=== PATIENT | female | born 1930 | race Caucasian/White ===

== ENCOUNTER 2017-05-04 01:27 | Inpatient (IN) ==
[2017-05-04] MEDS ORDERED: 0.9 % Sodium Chloride 1,000 ML IVC ONE (01:48)
[2017-05-04] MEDS ORDERED: Ondansetron 4 MG/2 ML VIAL IVP ONE (01:48)
[2017-05-04 01:57] LABS: Bilirubin,Urine Negative (Negative); Blood,Urine Moderate (Negative); Clarity,Urine Cloudy (Clear); Color,Urine Yellow (Yellow); Glucose,Urine (UA) Normal (Normal); Ketones,Urine Negative (Negative); Leukocyte Esterase,Urine Small (Negative); Nitrite,Urine Negative (Negative); Protein,Urine 30 mg/dL (Neg-Trace); Specific Gravity,Urine 1.025 (1.010-1.025); Urobilinogen,Urine Normal (Normal)
[2017-05-04 01:58] LABS: Basophils % 0.4 %; Eosinophils # 0.1 K/mcL (0.0-0.6); Eosinophils % 1.3 %; Hemoglobin 8.4 g/dL (11.5-15.4); Immature Granulocytes % 0.3 % (0-4); Lymphocytes # 0.7 K/mcL (0.6-4.6); Lymphocytes % 8.5 %; Mean Corpuscular HGB Conc 32.3 g/dL (31.6-35.5); Mean Corpuscular Hemoglobin 31.8 pg (28.0-33.3); Mean Corpuscular Volume 98.5 fL (83.0-100.0); Mean Platelet Volume 11.3 fL (9.4-12.4); Monocytes # 0.8 K/mcL (0.0-1.3); Monocytes % 10.7 %; Neutrophils # 6.2 K/mcL (1.6-8.9); Platelet Count 189 K/mcL (140-400); Red Blood Count 2.64 M/mcL (3.82-4.97); Red Cell Distribution Width 13.8 % (11.5-14.5); Segmented Neutrophils % 78.8 %
[2017-05-04 02:00] LABS: Hyaline Casts,Urine None Seen per lpf (None-Few); Squamous Epithelial Cell,Urine Moderate per lpf (None-Few)
--- NOTE | 2017-05-04 02:00 | Emergency Department Note ---
Disposition Clinical Impression: Supratherapeutic INR, Ureteral mass, Colitis GI bleed Qualifiers: GI bleed type/associated pathology: unspecified gastrointestinal hemorrhage type Qualified Code(s): K92.2 - Gastrointestinal hemorrhage, unspecified Hemorrhoids Qualifiers: Hemorrhoid type: unspecified Qualified Code(s): K64.9 - Unspecified hemorrhoids Disposition: Admitted As Inpatient Condition: Fair Abdominal Pain HPI - General Chief Complaint: ED Abdominal Pain Stated Complaint: Abdominal Pain, Rectal Bleeding, Weakness Time Seen by Provider: 05/04/17 01:37 Source: patient, family Mode of arrival: private vehicle Limitations: age Nursing Notes Reviewed: Yes Vital Signs Reviewed: Yes - History of Present Illness HPI Narrative: 87-year-old female history of atrial fibrillation on Coumadin, CVA who presents to the ER with a chief complaint of weakness, rectal bleeding, abdominal pain. Patient states pain started about a week ago and has progressed. History is also obtained by . She reports that she has had some bleeding whenever she wipes for the last 2 days. She states she felt nauseous but did not have any vomiting. No diarrhea. Has not had a bowel movement in 2 days. Denies dysuria or hematuria. No chest pain but has felt slightly short of breath. No other complaints. Pt Subjective Complaint: abdominal pain Onset (ago): day(s) Consistency: constant Location: LLQ, RLQ, suprapubic Pain Severity: moderate Pain Scale: 8 Quality: aching Radiation: none Migration to: no migration Improves with: nothing Worsens with: nothing Associated symptoms: Reports: nausea, hematochezia. Denies: vomiting, diarrhea , fever, dysuria, hematuria Treatments prior to arrival: none - Related Data Home Medications Medication Instructions Recorded Confirmed Coumadin 11/24/15 11/24/15 Allergies Allergy/AdvReac Type Severity Reaction Status Date / Time No Known Allergies Allergy Verified 05/04/17 01:28 All systems ED: reviewed and negative except as stated. Constitutional: Denies: fever Cardiovascular: Denies: chest pain Respiratory: Reports: dyspnea. Denies: cough Gastrointestinal: Reports: abdominal pain, nausea, hematochezia. Denies: vomiting, diarrhea Genitourinary: Denies: dysuria, hematuria Neurological: Reports: weakness Abdominal Pain PMH - Past Medical History Medical history: Reports: atrial fibrillation, cancer, CHF, CVA Psychiatric history: Reports: no psych history - Social History Smoking status: Never smoker Alcohol use: Reports: none Drug use: Reports: none Physical Exam - General Limitations: no limitations General appearance: alert, in no apparent distress - Head Head exam: atraumatic, normocephalic, normal inspection - Eye Eye exam: Present: normal appearance, EOMI - ENT ENT exam: normal exam - Neck Neck exam: Present: normal inspection, full ROM - Chest Chest inspection: Present: normal inspection, symmetric chest wall rise - Respiratory Respiratory exam: Present: normal lung sounds bilaterally - Cardiovascular Cardiovascular exam: Present: regular rate, normal rhythm, normal heart sounds - Abdominal Exam Abdominal exam: Present: soft, tenderness (Mild tenderness to palpation in the lower abdomen without distention, guarding or rigidity.) - Rectal Exam [employer] Supervisor present during exam: Yes Rectal exam: Present: heme (+) stool, hemorrhoids - Extremities Exam Extremities exam: Present: normal inspection, full ROM - Expanded Upper Extremity Exam Shoulder exam: Present: normal inspection, full ROM Arm exam: Present: normal inspection, full ROM Elbow exam: Present: normal inspection, full ROM Forearm/Wrist exam: Present: normal inspection, full ROM Hand exam: Present: normal inspection, full ROM - Expanded Lower Extremity Exam Hip/Pelvis exam: Present: normal inspection, full ROM Upper leg exam: Present: normal inspection, full ROM Knee exam: Present: normal inspection, full ROM Lower leg exam: Present: normal inspection, full ROM Ankle exam: Present: normal inspection, full ROM Foot/toe exam: Present: normal inspection, full ROM Neurovascular/Tendon exam: Absent: motor deficit, sensory deficit - Neurological Exam Neurological exam: Present: alert, other (GCS 15. Nonfocal neurologic exam.) - Psychiatric Psychiatric exam: Present: normal affect, normal mood - Skin Skin exam: Present: warm, dry, intact Course Course Narrative: Patient seen and examined. Rectal exam demonstrates external hemorrhoids without thrombosis. We will obtain an EKG, chest x-ray as well as labs including CBC, coags, type and screen. We will also obtain a CT scan of the abdomen and pelvis for her lower abdominal pain as well as a urinalysis. - Reevaluation(s) Reevaluation #1: I discussed results of lab work with the patient. She has a 3 g drop in her hemoglobin in the last 2 months. Her INR is supratherapeutic at 7.5. We will give her a dose of oral vitamin K as well as type and cross her for 2 units of blood. She is normotensive at this time. She will be admitted for GI bleed. Reevaluation #2: I discussed the results of the CT findings with the patient and family. She voices no complaints at this time. I did discuss with her her wishes and she reports that she would want whatever needs to be done to be done. Vital Signs Temperature 97.5 F L 05/04/17 01:28 Pulse Rate 95 05/04/17 01:28 Respiratory Rate 18 05/04/17 01:28 Blood Pressure 148/69 05/04/17 01:28 O2 Sat by Pulse Oximetry 97 05/04/17 01:28 Temperature 97.5 F L 05/04/17 01:28 Pulse Rate 84 05/04/17 04:13 Respiratory Rate 16 05/04/17 04:13 Blood Pressure 126/70 05/04/17 04:13 O2 Sat by Pulse Oximetry 99 05/04/17 04:13 Oxygen Delivery Oxygen Delivery Room Air Abdominal Pain - MDM Narrative Medical decision making narrative: 87-year-old female presents to the ER to weakness, abdominal pain, rectal bleeding. She appears well here. Normotensive throughout her stay. Rectal exam demonstrates external hemorrhoids. She is Hemoccult positive. Hemoglobin has dropped 3 g from her most recent one roughly 6 weeks ago. She is on INR and is supratherapeutic at 7.5. CT scan demonstrates a questionable mass around her right ureter with questionable bleeding. She also demonstrates colitis of her distal colon. Her white count is normal. Patient given a liter of IV fluids as well as pain medication here. Admitted to the hospitalist service for further management. - Lab Data Lab results reviewed: Yes I reviewed the patient's lab results. Result diagrams: 05/04/17 01:45 05/04/17 01:45 Lab Results 05/04/17 05/04/17 05/04/17 Range/Units 01:40 01:45 01:45 WBC 7.8 (4.3-11.1) K/mcL RBC 2.64 L (3.82-4.97) M/mcL Hgb 8.4 L (11.5-15.4) g/dL Hct 26.0 L (35.3-44.9) % MCV 98.5 (83.0-100.0) fL MCH 31.8 (28.0-33.3) pg MCHC 32.3 (31.6-35.5) g/dL RDW 13.8 (11.5-14.5) % Plt Count 189 (140-400) K/mcL MPV 11.3 (9.4-12.4) fL Immature Gran % 0.3 (0-4) % Seg Neutrophils % 78.8 % Lymphocytes % 8.5 % Monocytes % 10.7 % Eosinophils % 1.3 % Basophils % 0.4 % Neutrophils # 6.2 (1.6-8.9) K/mcL Lymphocytes # 0.7 (0.6-4.6) K/mcL Monocytes # 0.8 (0.0-1.3) K/mcL Eosinophils # 0.1 (0.0-0.6) K/mcL Basophils # 0.0 (0.0-0.2) K/mcL PT 84.3 H* (9.4-12.1) Seconds INR 7.5 H* Sodium (136-145) mEq/L Potassium (3.5-4.5) mEq/L Chloride (98-109) mEq/L Carbon Dioxide (19-29) mEq/L BUN (7-20) mg/dL Creatinine (0.57-1.11) mg/dL Est GFR ( Amer) (> 60) Est GFR (Non-Af Amer) (> 60) BUN/Creatinine Ratio (6-26) Glucose (70-99) mg/dL Calculated Osmolality (280-300) Calcium (8.6-10.8) mg/dL Total Bilirubin (0.2-1.2) mg/dL Direct Bilirubin (0.0-0.5) mg/dL Indirect Bilirubin (0.0-1.2) mg/dL AST (5-34) Units/L ALT (0-55) Units/L Alkaline Phosphatase (38-126) Units/L Troponin I (0-0.03) ng/mL Serum Total Protein (6.0-8.3) g/dL Albumin (3.5-5.0) g/dL Globulin (2.4-3.5) g/dL Albumin/Globulin Ratio (1.1-2.2) Lipase (8-78) Units/L Ur Specimen Adequacy See below A Urine Color Yellow (Yellow) Urine Clarity Cloudy A (Clear) Urine pH 6.0 (5.0-8.0) pH Units Ur Specific [place] 1.025 (1.010-1.025) Urine Protein 30 H (Neg-Trace) mg/dL Urine Glucose (UA) Normal (Normal) mg/dL Urine Ketones Negative (Negative) mg/dL Urine Blood Moderate H (Negative) Urine Nitrite Negative (Negative) Urine Bilirubin Negative (Negative) Urine Urobilinogen Normal (Normal) mg/dL Ur Leukocyte Esterase Small H (Negative) Urine Microscopic RBC 5-15 H (0-3) per hpf Urine Microscopic WBC 3-5 H (0-3) per hpf Ur Squamous Epith Cells Moderate H (None-Few) per lpf Urine Bacteria Few (None-Few) per hpf Hyaline Casts None Seen (None-Few) per lpf Ur Culture Indicated? YES A (NO) Stool Occult Blood (Negative) Blood Type Antibody Screen Crossmatch 05/04/17 05/04/17 05/04/17 Range/Units 01:45 01:45 01:45 WBC (4.3-11.1) K/mcL RBC (3.82-4.97) M/mcL Hgb (11.5-15.4) g/dL Hct (35.3-44.9) % MCV (83.0-100.0) fL MCH (28.0-33.3) pg MCHC (31.6-35.5) g/dL RDW (11.5-14.5) % Plt Count (140-400) K/mcL MPV (9.4-12.4) fL Immature Gran % (0-4) % Seg Neutrophils % % Lymphocytes % % Monocytes % % Eosinophils % % Basophils % % Neutrophils # (1.6-8.9) K/mcL Lymphocytes # (0.6-4.6) K/mcL Monocytes # (0.0-1.3) K/mcL Eosinophils # (0.0-0.6) K/mcL Basophils # (0.0-0.2) K/mcL PT (9.4-12.1) Seconds INR Sodium 136 (136-145) mEq/L Potassium 4.8 H (3.5-4.5) mEq/L Chloride 100 (98-109) mEq/L Carbon Dioxide 28 (19-29) mEq/L BUN 29 H (7-20) mg/dL Creatinine 0.92 (0.57-1.11) mg/dL Est GFR ( Amer) > 60 (> 60) Est GFR (Non-Af Amer) 58 L (> 60) BUN/Creatinine Ratio 32 H (6-26) Glucose 125 H (70-99) mg/dL Calculated Osmolality 289 (280-300) Calcium 9.1 (8.6-10.8) mg/dL Total Bilirubin 1.4 H (0.2-1.2) mg/dL Direct Bilirubin 0.6 H (0.0-0.5) mg/dL Indirect Bilirubin 0.8 (0.0-1.2) mg/dL AST 22 (5-34) Units/L ALT 12 (0-55) Units/L Alkaline Phosphatase 82 (38-126) Units/L Troponin I 0.02 (0-0.03) ng/mL Serum Total Protein 7.1 (6.0-8.3) g/dL Albumin 3.4 L (3.5-5.0) g/dL Globulin 3.7 H (2.4-3.5) g/dL Albumin/Globulin Ratio 0.9 L (1.1-2.2) Lipase 28 (8-78) Units/L Ur Specimen Adequacy Urine Color (Yellow) Urine Clarity (Clear) Urine pH (5.0-8.0) pH Units Ur Specific [place] (1.010-1.025) Urine Protein (Neg-Trace) mg/dL Urine Glucose (UA) (Normal) mg/dL Urine Ketones (Negative) mg/dL Urine Blood (Negative) Urine Nitrite (Negative) Urine Bilirubin (Negative) Urine Urobilinogen (Normal) mg/dL Ur Leukocyte Esterase (Negative) Urine Microscopic RBC (0-3) per hpf Urine Microscopic WBC (0-3) per hpf Ur Squamous Epith Cells (None-Few) per lpf Urine Bacteria (None-Few) per hpf Hyaline Casts (None-Few) per lpf Ur Culture Indicated? (NO) Stool Occult Blood (Negative) Blood Type O POSITIVE Antibody Screen NEGATIVE Crossmatch See Detail 05/04/17 Range/Units 02:02 WBC (4.3-11.1) K/mcL RBC (3.82-4.97) M/mcL Hgb (11.5-15.4) g/dL Hct (35.3-44.9) % MCV (83.0-100.0) fL MCH (28.0-33.3) pg MCHC (31.6-35.5) g/dL RDW (11.5-14.5) % Plt Count (140-400) K/mcL MPV (9.4-12.4) fL Immature Gran % (0-4) % Seg Neutrophils % % Lymphocytes % % Monocytes % % Eosinophils % % Basophils % % Neutrophils # (1.6-8.9) K/mcL Lymphocytes # (0.6-4.6) K/mcL Monocytes # (0.0-1.3) K/mcL Eosinophils # (0.0-0.6) K/mcL Basophils # (0.0-0.2) K/mcL PT (9.4-12.1) Seconds INR Sodium (136-145) mEq/L Potassium (3.5-4.5) mEq/L Chloride (98-109) mEq/L Carbon Dioxide (19-29) mEq/L BUN (7-20) mg/dL Creatinine (0.57-1.11) mg/dL Est GFR ( Amer) (> 60) Est GFR (Non-Af Amer) (> 60) BUN/Creatinine Ratio (6-26) Glucose (70-99) mg/dL Calculated Osmolality (280-300) Calcium (8.6-10.8) mg/dL Total Bilirubin (0.2-1.2) mg/dL Direct Bilirubin (0.0-0.5) mg/dL Indirect Bilirubin (0.0-1.2) mg/dL AST (5-34) Units/L ALT (0-55) Units/L Alkaline Phosphatase (38-126) Units/L Troponin I (0-0.03) ng/mL Serum Total Protein (6.0-8.3) g/dL Albumin (3.5-5.0) g/dL Globulin (2.4-3.5) g/dL Albumin/Globulin Ratio (1.1-2.2) Lipase (8-78) Units/L Ur Specimen Adequacy Urine Color (Yellow) Urine Clarity (Clear) Urine pH (5.0-8.0) pH Units Ur Specific [place] (1.010-1.025) Urine Protein (Neg-Trace) mg/dL Urine Glucose (UA) (Normal) mg/dL Urine Ketones (Negative) mg/dL Urine Blood (Negative) Urine Nitrite (Negative) Urine Bilirubin (Negative) Urine Urobilinogen (Normal) mg/dL Ur Leukocyte Esterase (Negative) Urine Microscopic RBC (0-3) per hpf Urine Microscopic WBC (0-3) per hpf Ur Squamous Epith Cells (None-Few) per lpf Urine Bacteria (None-Few) per hpf Hyaline Casts (None-Few) per lpf Ur Culture Indicated? (NO) Stool Occult Blood Positive A (Negative) Blood Type Antibody Screen Crossmatch - Radiology Data Radiology results reviewed: Yes I reviewed the patient's radiology results. Abdomen/Pelvis CT 05/04/17 01:48 IMPRESSION: 1. Right-sided hydronephrosis with mixed attenuation mass occupying the right renal collecting system and extending along the course of the right ureter. It is unclear whether this is within the ureter or surrounds the ureter. The areas of increased attenuation may represent hemorrhage. The findings are likely related to a malignancy and urologic consultation is recommended. 2. Previous right hemicolectomy. Bowel wall thickening with pericolonic inflammatory changes involving the distal sigmoid colon and rectum. A focal colitis is not excluded. 3. Marked cardiomegaly. Small to moderate right pleural effusion. 4. Trace perihepatic ascites. Mild infiltration of the mesenteric fat and fat planes in the right pericolic gutter. D/ / Jose Lagos MD / Jose Lagos MD Interpreting Provider: Jose Lagos MD Chest X-Ray 05/04/17 01:49 IMPRESSION: 1. Stable moderate enlargement of the cardiac silhouette. 2. Emphysema. No superimposed acute pulmonary abnormality. D/ / Colton Louis MD / Colton Louis MD Interpreting Provider: Colton Louis MD - EKG Data EKG attestation: Yes I reviewed and interpreted this EKG. EKG results narrative: EKG demonstrates atrial fibrillation with a rate of 87 bpm. Normal axis. Normal intervals. Poor R-wave progression. Nonspecific ST-T wave changes in the lateral leads. T-wave inversions in lead 3 new from prior EKG. No gross ST elevations or depressions. Critical Care Time Critical Care Time: Yes Total Critical Care Time: 40 Attestation: Critical care performed: Time is exclusive of separately billable procedures. Time includes: direct patient care, patient reassessment, coordination of patient care, interpretation of data (laboratory data, radiology data, and respiratory data), review of patient's medical records, medical consultation and documentation of patient care. Procedures included in critical care time: Procedures excluded from critical care time: Jennifer.Aury - Stevan Situation: Demographics, MOA Background: Presenting Complaint, Relevant PMH, Meds, & Allergies Assessment: Vital Signs, Course and respsone to treatment, Exam Concerns, Patient/Family Expectation, Pertinant Lab Results, Outstanding Labs Recommendation: Barrier(s) to disposition, Recommendation based on pending studies, treatments, or consults Stevan Report Given to: Dr. Angel Calles Repor Time: 04:35 Attestation Statement - Attestation Attestation: I, Tyler Guevara MD, personally evaluated this patient and discussed their management with the resident physician. I reviewed the resident's note and agree with the documented findings, medical decision making, and plan of care. 87-year-old female presents to the emergency department with a complaint of some generalized abdominal pain which started about a week ago but is Worse over the past one or 2 days. She has been constipated and last bowel movement was 2 or 3 days ago and was only a small amount of small hard balls of stool. Patient states that she feels like her abdomen is going to explode however it does not seem swollen or bloated. She denies any fever. On examination patient is a well-developed thin elderly female in no acute distress. She is alert and oriented. There is no cyanosis or diaphoresis. Breath sounds are clear and equal bilaterally. Heart irregularly irregular. Abdomen soft with hypoactive bowel sounds. Mild diffuse tenderness. No guarding or rebound tenderness. No tympany or distention. Labs reviewed. INR 7.5. Hemoglobin 8.4 (last hemoglobin was 11.3 about [address] of the abdomen and pelvis showed right hydronephrosis with apparent hemorrhage into the renal pelvis and extending down along the ureter. Possible malignancy. The hospitalist, Dr. Ortiz, was consulted and accepted admission of this patient.
[2017-05-04 02:10] LABS: INR 7.5; Prothrombin Time 84.3 Seconds (9.4-12.1)
[2017-05-04 02:13] LABS: Alanine Aminotransferase 12 Units/L (0-55); Albumin 3.4 g/dL (3.5-5.0); Albumin/Globulin Ratio 0.9 (1.1-2.2); Alkaline Phosphatase 82 Units/L (38-126); Aspartate Amino Transferase 22 Units/L (5-34); BUN/Creatinine Ratio 32 (6-26); Bilirubin,Direct 0.6 mg/dL (0.0-0.5); Bilirubin,Indirect 0.8 mg/dL (0.0-1.2); Bilirubin,Total 1.4 mg/dL (0.2-1.2); Blood Urea Nitrogen 29 mg/dL (7-20); Calcium 9.1 mg/dL (8.6-10.8); Carbon Dioxide 28 mEq/L (19-29); Chloride 100 mEq/L (98-109); Globulin 3.7 g/dL (2.4-3.5); Glucose 125 mg/dL (70-99); Lipase 28 Units/L (8-78); Osmolality,Calculated 289 (280-300); Potassium 4.8 mEq/L (3.5-4.5); Sodium 136 mEq/L (136-145); Total Protein 7.1 g/dL (6.0-8.3); eGFR For African Americans > 60 (> 60); eGFR For Non-African Americans 58 (> 60)
[2017-05-04 02:15] LABS: Bacteria,Urine Few per hpf (None-Few)
[2017-05-04] MEDS ORDERED: *HR* Phytonadione 5 MG TABLET PO ONE (02:17)
[2017-05-04] MEDS ORDERED: *HR* Morphine 2 MG/ML SYRINGE IVP ONE (03:25)
[2017-05-04] MEDS ORDERED: 0.9 % Sodium Chloride 250 ML ONE ×2 (08:29→17:05)
[2017-05-04] MEDS ORDERED: Naloxone 0.4 MG/ML INJ IVP PRN (08:54)
[2017-05-04] MEDS ORDERED: Acetaminophen 325 MG TABLET PO PRN (08:54)
[2017-05-04] MEDS: *HR* Digoxin 0.125 MG TABLET PO SCH (11:40)
[2017-05-04] MEDS: Metoprolol XL (24 HR) Succ 50 MG TAB.ER.24H PO SCH ×2 (11:40→20:47)
[2017-05-04] MEDS: Furosemide 20 MG TABLET PO SCH ×2 (11:40→17:31)
[2017-05-04] MEDS: Isosorbide MONOnitrate (24 HR) 30 MG TAB.ER.24H PO SCH (11:40)
--- NOTE | 2017-05-04 12:06 | Internal Med History&Physical ---
Date of Encounter: 05/04/17 Time of Encounter: 09:00 Assessment and Plan (1) DVT prophylaxis Current visit: Yes Status: Acute Patient is on Coumadin. INR is supratherapeutic. Place patient on EPCD (2) CHF (congestive heart failure) Current visit: Yes Status: Chronic Appears euvolemic now. Continue home medications Qualifiers: Congestive heart failure type: systolic Congestive heart failure chronicity : chronic Qualified Code(s): I50.22 - Chronic systolic (congestive) heart failure (3) A-fib Current visit: Yes Status: Acute Heart rate is well controlled. On Coumadin but on hold now because of supratherapeutic INR and rectal bleeding. Qualifiers: Atrial fibrillation type: chronic Qualified Code(s): I48.2 - Chronic atrial fibrillation (4) Hypertension Current visit: Yes Status: Acute Continue home medications, BP is stable Qualifiers: Hypertension type: essential hypertension Qualified Code(s): I10 - Essential (primary) hypertension (5) GI bleed Current visit: Yes Status: Acute Patient complaining of fresh blood on toilet paper. Guaiac test positive in emergency room. History of colon cancer S/P surgery. Will consult surgery. At this point patient has stable vitals and H/H, continue close monitoring Qualifiers: GI bleed type/associated pathology: unspecified gastrointestinal hemorrhage type Qualified Code(s): K92.2 - Gastrointestinal hemorrhage, unspecified (6) Supratherapeutic INR Current visit: Yes Status: Acute Hold Coumadin, vitamin K was given in emergency room (7) Ureteral mass Current visit: Yes Status: Acute Will possibly also account for anemia. Will consult urology for further management (8) Colitis Current visit: Yes Status: Acute Patient to present to ER for abdominal pain. Feels like constipation but CT abdomen shows mild stool burden. CT suggests colitis. - We will place patient on clear liquid diet. - IV Cipro and Flagyl at this point. (9) Hemorrhoids Current visit: Yes Status: Acute Patient was found external hemorrhoid, which may also account for rectal bleeding. Qualifiers: Hemorrhoid type: unspecified Qualified Code(s): K64.9 - Unspecified hemorrhoids (10) Anemia Current visit: Yes Status: Acute Decreased hemoglobin from 11 to 8 within 2 months. MCV 98.5. Probably multiple factorial. We will place anemia workup. Qualifiers: Anemia type: unspecified type Qualified Code(s): D64.9 - Anemia, unspecified Internal Medicine - H&P: HPI Chief complaint: Abdominal pain Admitted From: Home Plans for Post Hospital Care: Home History of present illness: Ms. Adame is a 87 year old female presented to the emergency room for abdominal pain, patient has history of colon cancer S/P right hemicolectomy, A. fib on Coumadin, CHF, history of CVA with left-sided weakness. Patient said the pain started about 1 week ago, located on lower abdominal, no diarrhea. Patient feels like she has hard stool but cannot had a bowel movement. Patient denies fever, nausea, or vomiting. Patient has noticed fresh blood on the toilet paper. But denies large amount rectal bleeding. In emergency room, guaiac test positive. 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 Patient was admitted for further management. I have discussed CODE STATUS with this patient, patient is full code. Past Med Surg Social Fam HX - Past Medical History Medical history: atrial fibrillation, cancer, CHF, CVA, TIA Psychiatric history: no psych history - Past Surgical History Surgical History: colectomy - Social History Smoking Status: Former smoker Smokeless Tobacco Status: No Alcohol use: none Drug use: none - Family History Mother History Unknown: Yes Internal Medicine - H&P: Meds Alendronate Sodium 70 mg PO QWEEK 05/04/17 [History] Digoxin [Lanoxin] 0.125 mg PO DAILY 05/04/17 [History] Furosemide [Lasix] 20 mg PO BID 05/04/17 [History] Isosorbide MONOnitrate (24 HR) [Imdur] 30 mg PO DAILY 05/04/17 [History] Lisinopril [Zestril] 10 mg PO BID 05/04/17 [History] Metoprolol XL (24 HR) Succ [Toprol XL] 50 mg PO BID 05/04/17 [History] Simvastatin [Zocor] 20 mg PO DAILY 05/04/17 [History] Warfarin [Coumadin] 3 mg PO DAILY 05/04/17 [History] 3 Allergy/AdvReac Type Severity Reaction Status Date / Time No Known Allergies Allergy Verified 05/04/17 01:28 All Systems PM: A 10-system review of systems was performed and is negative for pertinent findings except as documented above in the HPI. - Constitutional Vitals: Temp Pulse Resp BP Pulse Ox 98.3 F 82 18 128/66 97 05/04/17 09:31 05/04/17 09:31 05/04/17 09:31 05/04/17 09:31 05/04/17 09:31 General appearance: Present: A&O X 3, no acute distress, answers questions appropriately - Head Head exam: Present: atraumatic, normocephalic - Eye Eye exam: Present: PERRL, conjuntiva pink, sclera anicteric Pupils: Present: PERRL - Neck Neck exam general surgery: Present: supple, trachea midline. Absent: lymphadenopathy - Respiratory Respiratory exam: Present: CTAB. Absent: accessory muscle use, rales, rhonchi, wheezes - Cardiovascular Cardiovascular exam: Present: RRR, +S1, +S2. Absent: diastolic murmur, gallop, rubs, systolic murmur - GI/Abdominal GI/Abdominal exam: Present: normal bowel sounds, soft, tenderness (Tenderness on lower abdominal area, Rt> Lt. no rebound), no peritoneal signs. Absent: distended - Extremities Exam Extremities exam: Present: warm, radial pulses palpable and symmetrical. Absent : calf tenderness, cyanotic, pedal edema - Neurological Exam Neurological exam: Present: CN II-XII intact, oriented X3, no focal deficits. Absent: pronater drift, facial droop, speech deficit - Skin Skin exam: Present: dry, intact Internal Med - H&P Results - Labs CBC & Chem 7: 05/04/17 01:45 05/04/17 01:45 - VTE Documentation of Mechanical Device: Intermittent pneumatic compression device
[2017-05-04] MEDS ORDERED: Furosemide 20 MG/2 ML VIAL IVP ONE (12:48)
--- NOTE | 2017-05-04 13:15 | General Surgery Consult Note ---
Date of Encounter: 05/04/17 Time of Encounter: 12:50 History of Present Illness Consult date: 05/04/17 Reason for consult: other (ANEMIA, HEMOCCULT POSITIVE STOOL, RECTAL BLEEDING) Requesting physician: Estefani Chambers History of present illness: 87 yo well known to me with prior history colon cancer, 1997. S/p right colectomy. Last seen in the office 2008. Colonoscopy completed at that time demonstrated normal colon with health intact ileocolic anastomosis. No evidence recurrent cancer at the time. The patient was 79 years old and due to advancing no further colonoscopies were planned or completed. The patient apparently suffered a stroke, 03/04/17. The patient has been "in and out" of rehab for treatment of the stroke. The patient describes passing copious rectal blood a few days ago but, due to confusion, the exact timeline is uncertain. The patient is unable to give a significant history and unfortunately her was not present during my encounter with the patient. Surgical consultation was placed for hemoglobin of 8.4 with hematocrit 26.0 ( notably diminished from hemoglobin of 11.3 and hematocrit 35.1 on 03/13/17). Stool is described as Hemoccult positive. CT of the abdomen and pelvis completed this morning was personally reviewed with [facility]. Radiology report describes abdominal pain and shortness of breath for 1 week; 2 day history of rectal bleeding as the reason for the CT abdomen and pelvis. Findings include: Small to moderate sized right pleural effusion; stable market cardiomegaly; unenhanced liver pancreas and adrenal glands unremarkable; multiple splenic granulomata; moderate right hydronephrosis with mixed attenuation mass extending from the renal hilum along the course of the ureter into the pelvis. It was not possible to determine whether the mass surrounded the ureter was within the ureter itself. This mass measures 4.7 x 3.4 cm. Bowel wall thickening involving the distal rectosigmoid with infiltration of the presacral soft tissues and paracolic soft tissues is also noted. It appears that the right-sided hydronephrosis and mixed attenuation mass right renal collecting system is associated with significant hemorrhage and is most likely the source of the patient's newly diagnosed anemia. PT/INR are markedly abnormal - currently 84.3 with an INR of 7.5. This degree of anticoagulation is contributing to the patient's hemorrhagic findings involving the right kidney and renal collecting system. Physical Examination: Frail, elderly female in no acute distress. Patient is afebrile, currently 97.9, pulse 66-82; respirations 16 and unlabored; one pressure 109/65; O2 on room air 96% Lungs: Diminished breath sounds right base; otherwise clear Abdomen: Soft, slightly protuberant but nontender. Midline incision well healed without fascial defects. No detected intra-abdominal masses, no rebound. Hypoactive bowel sounds Skin: Warm, no obvious jaundice Recommendations: It is unclear whether the patient wishes to consider any surgical intervention. I will wait to discuss things with the patient's as the patient is quite confused. Consider aggressive reversal of the anticoagulation. Surgical intervention will be determined per my discussions with the patient and her . Past Med Surg Social Fam HX - Past Medical History Medical history: atrial fibrillation, cancer, CHF, CVA, TIA Psychiatric history: no psych history - Past Surgical History Surgical History: colectomy - Social History Smoking Status: Former smoker Smokeless Tobacco Status: No Alcohol use: none Drug use: none - Family History Mother History Unknown: Yes Medications and Allergies Alendronate Sodium 70 mg PO QWEEK 05/04/17 [History] Digoxin [Lanoxin] 0.125 mg PO DAILY 05/04/17 [History] Furosemide [Lasix] 20 mg PO BID 05/04/17 [History] Isosorbide MONOnitrate (24 HR) [Imdur] 30 mg PO DAILY 05/04/17 [History] Lisinopril [Zestril] 10 mg PO BID 05/04/17 [History] Metoprolol XL (24 HR) Succ [Toprol XL] 50 mg PO BID 05/04/17 [History] Simvastatin [Zocor] 20 mg PO DAILY 05/04/17 [History] Warfarin [Coumadin] 3 mg PO DAILY 05/04/17 [History] 3 Allergy/AdvReac Type Severity Reaction Status Date / Time No Known Allergies Allergy Verified 05/04/17 01:28 Review of Systems All systems PM: A 10-system review of systems was performed and is negative for pertinent findings except as documented above in the HPI. General Surgery Exam Initial Vital Signs Temp Pulse Resp BP Pulse Ox 97.5 F L 95 18 148/69 97 05/04/17 01:28 05/04/17 01:28 05/04/17 01:28 05/04/17 01:28 05/04/17 01:28 Exam Initial Vital Signs Temp Pulse Resp BP Pulse Ox 97.5 F L 95 18 148/69 97 05/04/17 01:28 05/04/17 01:28 05/04/17 01:28 05/04/17 01:28 05/04/17 01:28 Results - Labs 05/04/17 01:45 05/04/17 01:45 Abnormal lab results RBC 2.64 M/mcL (3.82-4.97) L 05/04/17 01:45 Hgb 8.4 g/dL (11.5-15.4) L 05/04/17 01:45 Hct 26.0 % (35.3-44.9) L 05/04/17 01:45 PT 84.3 Seconds (9.4-12.1) H* 05/04/17 01:45 INR 7.5 H* 05/04/17 01:45 Potassium 4.8 mEq/L (3.5-4.5) H 05/04/17 01:45 BUN 29 mg/dL (7-20) H 05/04/17 01:45 Est GFR (Non-Af Amer) 58 (> 60) L 05/04/17 01:45 BUN/Creatinine Ratio 32 (6-26) H 05/04/17 01:45 Glucose 125 mg/dL (70-99) H 05/04/17 01:45 POC Glucose 109 (58-89) H 05/04/17 07:00 Total Bilirubin 1.4 mg/dL (0.2-1.2) H 05/04/17 01:45 Direct Bilirubin 0.6 mg/dL (0.0-0.5) H 05/04/17 01:45 Albumin 3.4 g/dL (3.5-5.0) L 05/04/17 01:45 Globulin 3.7 g/dL (2.4-3.5) H 05/04/17 01:45 Albumin/Globulin Ratio 0.9 (1.1-2.2) L 05/04/17 01:45 Ur Specimen Adequacy See below A 05/04/17 01:40 Urine Clarity Cloudy (Clear) A 05/04/17 01:40 Urine Protein 30 mg/dL (Neg-Trace) H 05/04/17 01:40 Urine Blood Moderate (Negative) H 05/04/17 01:40 Ur Leukocyte Esterase Small (Negative) H 05/04/17 01:40 Urine Microscopic RBC 5-15 per hpf (0-3) H 05/04/17 01:40 Urine Microscopic WBC 3-5 per hpf (0-3) H 05/04/17 01:40 Ur Squamous Epith Cells Moderate per lpf (None-Few) H 05/04/17 01:40 Ur Culture Indicated? YES (NO) A 05/04/17 01:40 Stool Occult Blood Positive (Negative) A 05/04/17 02:02 All other labs normal. Consult Discharge Plan - Plan Referrals: Mane Wright DO [Primary Care Provider] -
[2017-05-04] MEDS ORDERED: MetroNIDAZOLE 500 MG/100 ML 500 MG/100 ML BAG IVPB SCH ×2 (16:00→21:00)
--- NOTE | 2017-05-04 19:09 | Electrocardiograph Report ---
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
--- NOTE | 2017-05-04 20:03 | Urology - Consult Note ---
Date of Encounter: 05/04/17 Time of Encounter: 20:00 - Assessment and Plan (1) Ureteral mass Current Visit: Yes Status: Acute Assessment and plan: 87-year-old woman with a concern for a right ureteral mass versus external compression to the ureter. I will discuss further with Dr. Talavera regarding her colon cancer history. Further urologic workup would include a urine cytology as well as a right ureteroscopy, possible biopsy, and stent placement. I will obtain a cytology today. I will discuss further with Dr. Talavera. I answered all of her questions. I will continue to follow along. Urology CN:HPI Consult date: 05/04/17 Reason for consult Urology: Other (right urothelial mass vs extrinsic mass compressing ureter) History of present illness: 87-year-old woman with a history of colon cancer was admitted to the hospital for abdominal pain. Workup a CT scan was obtained which showed a large mass around the cord within the right ureter. This seemed to extend into the right kidney. She has been admitted for further care. She had an elevated INR secondary to her warfarin. She is getting plasma to bring down the INR. She denies any right flank pain or difficulty with voiding. She denies any hematuria. Past Med Surg Social Fam HX - Past Medical History Medical history: atrial fibrillation, cancer, CHF, CVA, TIA Psychiatric history: no psych history - Past Surgical History Surgical History: colectomy - Social History Smoking Status: Former smoker Smokeless Tobacco Status: No Alcohol use: none Drug use: none - Family History Mother History Unknown: Yes Medications and Allergies Alendronate Sodium 70 mg PO QWEEK 05/04/17 [History] Digoxin [Lanoxin] 0.125 mg PO DAILY 05/04/17 [History] Furosemide [Lasix] 20 mg PO BID 05/04/17 [History] Isosorbide MONOnitrate (24 HR) [Imdur] 30 mg PO DAILY 05/04/17 [History] Lisinopril [Zestril] 10 mg PO BID 05/04/17 [History] Metoprolol XL (24 HR) Succ [Toprol XL] 50 mg PO BID 05/04/17 [History] Simvastatin [Zocor] 20 mg PO DAILY 05/04/17 [History] Warfarin [Coumadin] 3 mg PO DAILY 05/04/17 [History] 3 Allergy/AdvReac Type Severity Reaction Status Date / Time No Known Allergies Allergy Verified 05/04/17 01:28 Review of Systems - Constitutional no chills, no fever(s) - EENT Nose, mouth and throat: no dizziness - Cardiovascular no chest pain - Respiratory no dyspnea - Gastrointestinal no nausea, no vomiting - Genitourinary Genitourinary: no flank pain, no hematuria - Musculoskeletal no back pain - Integumentary no erythema, no rash - Neurological no weakness - Psychiatric no suicidal ideation - Hematologic/Lymphatic no easy bleeding - Allergic/Immunologic no wheezing Exam Initial Vital Signs Temp Pulse Resp BP Pulse Ox 97.5 F L 95 18 148/69 97 05/04/17 01:28 05/04/17 01:28 05/04/17 01:28 05/04/17 01:28 05/04/17 01:28 - General physical appearance Present: well developed, well nourished, no distress - Eyes Absent: icteric - ENT Present: normal mucosa - Neck Present: trachea midline - Respiratory Present: normal respiratory effort - Cardiovascular Cardiovascular exam IM: RRR - Abdomen Abdomen: Present: soft Urology Results - Labs 05/04/17 01:45 05/04/17 01:45 Abnormal lab results RBC 2.64 M/mcL (3.82-4.97) L 05/04/17 01:45 Hgb 8.4 g/dL (11.5-15.4) L 05/04/17 01:45 Hct 26.0 % (35.3-44.9) L 05/04/17 01:45 PT 84.3 Seconds (9.4-12.1) H* 05/04/17 01:45 INR 7.5 H* 05/04/17 01:45 Potassium 4.8 mEq/L (3.5-4.5) H 05/04/17 01:45 BUN 29 mg/dL (7-20) H 05/04/17 01:45 Est GFR (Non-Af Amer) 58 (> 60) L 05/04/17 01:45 BUN/Creatinine Ratio 32 (6-26) H 05/04/17 01:45 Glucose 125 mg/dL (70-99) H 05/04/17 01:45 POC Glucose 109 (58-89) H 05/04/17 07:00 Total Bilirubin 1.4 mg/dL (0.2-1.2) H 05/04/17 01:45 Direct Bilirubin 0.6 mg/dL (0.0-0.5) H 05/04/17 01:45 Albumin 3.4 g/dL (3.5-5.0) L 05/04/17 01:45 Globulin 3.7 g/dL (2.4-3.5) H 05/04/17 01:45 Albumin/Globulin Ratio 0.9 (1.1-2.2) L 05/04/17 01:45 Ur Specimen Adequacy See below A 05/04/17 01:40 Urine Clarity Cloudy (Clear) A 05/04/17 01:40 Urine Protein 30 mg/dL (Neg-Trace) H 05/04/17 01:40 Urine Blood Moderate (Negative) H 05/04/17 01:40 Ur Leukocyte Esterase Small (Negative) H 05/04/17 01:40 Urine Microscopic RBC 5-15 per hpf (0-3) H 05/04/17 01:40 Urine Microscopic WBC 3-5 per hpf (0-3) H 05/04/17 01:40 Ur Squamous Epith Cells Moderate per lpf (None-Few) H 05/04/17 01:40 Ur Culture Indicated? YES (NO) A 05/04/17 01:40 Stool Occult Blood Positive (Negative) A 05/04/17 02:02 All other labs normal. - Imaging CT scan - abdomen: report reviewed, image reviewed CT scan - pelvis: report reviewed, image reviewed Consult Discharge Plan - Plan Referrals: Mane Wright DO [Primary Care Provider] -
[2017-05-04] MEDS ORDERED: 0.9 % Sodium Chloride 500 ML ONE (20:16)
[2017-05-04 20:17] LABS: INR 3.9
[2017-05-05] MEDS: MetroNIDAZOLE 500 MG/100 ML 500 MG/100 ML BAG IVPB SCH ×3 (00:41→18:25)
[2017-05-05 06:44] LABS: INR 3.2; Prothrombin Time 35.7 Seconds (9.4-12.1)
[2017-05-05 06:48] LABS: Basophils % 0.6 %; Eosinophils # 0.1 K/mcL (0.0-0.6); Eosinophils % 2.8 %; Hematocrit 26.6 % (35.3-44.9); Hemoglobin 8.6 g/dL (11.5-15.4); Immature Granulocytes % 2.1 % (0-4); Lymphocytes # 0.3 K/mcL (0.6-4.6); Lymphocytes % 6.8 %; Mean Corpuscular HGB Conc 32.3 g/dL (31.6-35.5); Mean Corpuscular Hemoglobin 30.8 pg (28.0-33.3); Mean Corpuscular Volume 95.3 fL (83.0-100.0); Mean Platelet Volume 11.2 fL (9.4-12.4); Monocytes # 0.8 K/mcL (0.0-1.3); Monocytes % 16.1 %; Neutrophils # 3.4 K/mcL (1.6-8.9); Platelet Count 158 K/mcL (140-400); Red Blood Count 2.79 M/mcL (3.82-4.97); Red Cell Distribution Width 14.6 % (11.5-14.5); Segmented Neutrophils % 71.6 %
[2017-05-05 06:54] LABS: BUN/Creatinine Ratio 23 (6-26); Calcium 8.8 mg/dL (8.6-10.8); Carbon Dioxide 35 mEq/L (19-29); Chloride 100 mEq/L (98-109); Glucose 92 mg/dL (70-99); Osmolality,Calculated 290 (280-300); eGFR For African Americans > 60 (> 60); eGFR For Non-African Americans > 60 (> 60)
[2017-05-05 07:05] LABS: Blood Urea Nitrogen 18 mg/dL (7-20); Sodium 139 mEq/L (136-145)
[2017-05-05] MEDS: Metoprolol XL (24 HR) Succ 50 MG TAB.ER.24H PO SCH ×2 (08:56→22:16)
[2017-05-05] MEDS: Furosemide 20 MG TABLET PO SCH ×2 (08:56→18:25)
[2017-05-05] MEDS: *HR* Digoxin 0.125 MG TABLET PO SCH (08:56)
[2017-05-05] MEDS: Isosorbide MONOnitrate (24 HR) 30 MG TAB.ER.24H PO SCH (08:56)
--- NOTE | 2017-05-05 09:36 | General Surgery Progress Note ---
Date of Encounter: 05/05/17 Time of Encounter: 09:20 Subjective Patient reports: no new complaints, other (Patient severely disoriented) Narrative: General Surgery - Hospital Day #2 at bedside. Patient is severely disoriented and does not recall the events of the previous day nor does she remember GI bleeding. Patient has remained afebrile, currently 98.3, pulse 8192; respirations 18 and nonlabored; blood pressure 159/72. SPO2 on room air 93-96% Abdomen: Soft, nontender. No rebound. Active bowel sounds. Laboratories: White count 4.7, hemoglobin stable at 8.6 and 26.6 (status post transfusion one unit packed red blood cells) platelet count 158,000. PT 35.7, INR 3.2. Impression: Confused, 87-year-old female, referred to surgical services as well as urology for further evaluation and treatment of GI bleeding as well as Jyoti perinephric hemorrhage. Patient remains supra-anticoagulated which is contributing to the bleeding. The patient is extremely frail and a poor candidate for any intervention. These discussions have been held with the patient's . The level of anticoagulation is still unacceptably high - continued reversal recommended. Objective Vital Signs - Last 8 Hours Temp Pulse Resp BP Pulse Ox 05/05/17 07:14 98.3 F 92 18 159/72 93 05/05/17 04:15 98.2 F 81 14 128/67 96 Intake and Output 05/04/17 05/05/17 05/05/17 23:59 07:59 15:59 Intake Total 745 / 745 200 / 200 Output Total 650 / 650 0 / 0 Balance 95 / 95 200 / 200 Intake: IV Fluids 200 / 200 Cipro Premix 200 MG/100 ML 200 100 / 100 mg In 100 ml @ 100 mls/hr IVPB Q12H [facility] Rx#:[id number] Flagyl Premix 500 MG/100 ML 500 100 / 100 mg In 100 ml @ 100 mls/hr IVPB Q8H [facility] Rx#:[id number] Oral 120 / 120 0 / 0 Blood Product 625 / 625 Plasma Unit [id number] 375 / 375 Plasma Unit [id number] 250 / 250 Output: Urine 650 / 650 0 / 0 Other: # Voids 1 Weight 50.167 kg Patient Weight 05/05/17 23:59 Weight 50.167 kg - Labs 10/14/17 06:25 05/05/17 06:25 Diabetes panel 05/05/17 Range/Units 06:25 Sodium 139 (136-145) mEq/L Potassium 4.0 (3.5-4.5) mEq/L Chloride 100 (98-109) mEq/L Carbon Dioxide 35 H (19-29) mEq/L BUN 18 D (7-20) mg/dL Creatinine 0.79 (0.57-1.11) mg/dL Glucose 92 (70-99) mg/dL Calcium 8.8 (8.6-10.8) mg/dL Calcium panel 05/05/17 Range/Units 06:25 Calcium 8.8 (8.6-10.8) mg/dL Pituitary panel 05/05/17 Range/Units 06:25 Sodium 139 (136-145) mEq/L Potassium 4.0 (3.5-4.5) mEq/L Chloride 100 (98-109) mEq/L Carbon Dioxide 35 H (19-29) mEq/L BUN 18 D (7-20) mg/dL Creatinine 0.79 (0.57-1.11) mg/dL Glucose 92 (70-99) mg/dL Calcium 8.8 (8.6-10.8) mg/dL Adrenal panel 05/05/17 Range/Units 06:25 Sodium 139 (136-145) mEq/L Potassium 4.0 (3.5-4.5) mEq/L Chloride 100 (98-109) mEq/L Carbon Dioxide 35 H (19-29) mEq/L BUN 18 D (7-20) mg/dL Creatinine 0.79 (0.57-1.11) mg/dL Glucose 92 (70-99) mg/dL Calcium 8.8 (8.6-10.8) mg/dL - VTE Documentation of Mechanical Device: Venous foot pump, device Consult Discharge Plan - Plan Referrals: Mane Wright DO [Primary Care Provider] -
[2017-05-05] MEDS ORDERED: 0.9 % Sodium Chloride 250 ML ONE ×2 (12:00→15:52)
--- NOTE | 2017-05-05 12:39 | Urology Progress Note ---
Date of Encounter: 05/05/17 Time of Encounter: 12:37 - Assessment and Plan (1) Ureteral mass Current Visit: Yes Status: Acute Assessment and plan: There is concern for a ureteral mass or a urothelial bleed. Given her elevated INR, it seems likely that she had a spontaneous bleed. I will follow up on cytology once obtained. We may consider repeat imaging in the future versus ureteroscopy. Given her age and performance status, observation may be more reasonable. Progress Note Narrative: 87-year-old woman with a right renal bleed versus possible retroperitoneal mass. She is stable today. I spoke with Dr. Talavera today. She recommends close observation. She is stable today. Objective Initial Vital Signs Temp Pulse Resp BP Pulse Ox 97.5 F L 95 18 148/69 97 05/04/17 01:28 05/04/17 01:28 05/04/17 01:28 05/04/17 01:28 05/04/17 01:28 - General physical appearance Present: well developed, well nourished, no distress - Respiratory Present: normal respiratory effort - Abdomen Present: soft - Labs 05/05/17 06:25 05/05/17 06:25 Diabetes panel 05/05/17 Range/Units 06:25 Sodium 139 (136-145) mEq/L Potassium 4.0 (3.5-4.5) mEq/L Chloride 100 (98-109) mEq/L Carbon Dioxide 35 H (19-29) mEq/L BUN 18 D (7-20) mg/dL Creatinine 0.79 (0.57-1.11) mg/dL Glucose 92 (70-99) mg/dL Calcium 8.8 (8.6-10.8) mg/dL Calcium panel 05/05/17 Range/Units 06:25 Calcium 8.8 (8.6-10.8) mg/dL Pituitary panel 05/05/17 Range/Units 06:25 Sodium 139 (136-145) mEq/L Potassium 4.0 (3.5-4.5) mEq/L Chloride 100 (98-109) mEq/L Carbon Dioxide 35 H (19-29) mEq/L BUN 18 D (7-20) mg/dL Creatinine 0.79 (0.57-1.11) mg/dL Glucose 92 (70-99) mg/dL Calcium 8.8 (8.6-10.8) mg/dL Adrenal panel 05/05/17 Range/Units 06:25 Sodium 139 (136-145) mEq/L Potassium 4.0 (3.5-4.5) mEq/L Chloride 100 (98-109) mEq/L Carbon Dioxide 35 H (19-29) mEq/L BUN 18 D (7-20) mg/dL Creatinine 0.79 (0.57-1.11) mg/dL Glucose 92 (70-99) mg/dL Calcium 8.8 (8.6-10.8) mg/dL - VTE Documentation of Mechanical Device: Venous foot pump, device Consult Discharge Plan - Plan Referrals: Mane Wright DO [Primary Care Provider] -
--- NOTE | 2017-05-05 12:48 | Internal Med Progress Note ---
Date of Encounter: 05/05/17 Time of Encounter: 12:44 - Assessment and plan (1) GI bleed Current Visit: Yes Status: Acute Assessment and plan: No acute bleeding reported since hospitalization H&H low but acceptable Surgery (Dr. Talavera) on board and consultation appreciated will continue to closely monitor and transfuse as needed IV PPI clear liquid diet Qualifiers: GI bleed type/associated pathology: unspecified gastrointestinal hemorrhage type Qualified Code(s): K92.2 - Gastrointestinal hemorrhage, unspecified (2) Anemia Current Visit: Yes Status: Acute Assessment and plan: secondary to GI bleed H&H low but acceptable will continue to monitor transfuse as needed will obtain iron studies Qualifiers: Anemia type: unspecified type Qualified Code(s): D64.9 - Anemia, unspecified (3) Supratherapeutic INR Current Visit: Yes Status: Acute Assessment and plan: secondary to Coumadin holding anticoagulation at this time pt receiving 2 units FFP at this time will closely monitor INR s/p receiving Vitamin K upon arrival to the ER (4) Ureteral mass Current Visit: Yes Status: Acute Assessment and plan: urology on board and consultation appreciated awaiting normalization of INR prior to any surgical intervention (5) Colitis Current Visit: Yes Status: Acute Assessment and plan: CT abd pelvis consistent with Colitis continue clear liquid diet continue IV cipro and flagyl reports of resolution of abd pain at this time (6) DVT prophylaxis Current Visit: Yes Status: Acute Assessment and plan: SCD (7) CHF (congestive heart failure) Current Visit: Yes Status: Chronic Assessment and plan: no clinical signs of CHF exacerbation present continue home meds Qualifiers: Congestive heart failure type: systolic Congestive heart failure chronicity : chronic Qualified Code(s): I50.22 - Chronic systolic (congestive) heart failure (8) A-fib Current Visit: Yes Status: Chronic Assessment and plan: Rate controlled with Metoprolol, will continue holding anticoagulation given current GI bleed Qualifiers: Atrial fibrillation type: chronic Qualified Code(s): I48.2 - Chronic atrial fibrillation (9) Hypertension Current Visit: Yes Status: Chronic Assessment and plan: BP within acceptable range continue home medications Qualifiers: Hypertension type: essential hypertension Qualified Code(s): I10 - Essential (primary) hypertension - Subjective Interval history: Patient seen and examined at bedside. Resting in bed and eating lunch. Currently AAO x 3 however does not recall the events from previous day. Denies any abd discomfort or any pain at this time. Continues to have supratherapeutic INR for which she is currently receiving FFP No recurrent bleeding episodes reported since hospitalization No overnight events reported. - Constitutional Vitals: Temp Pulse Resp BP Pulse Ox 98.5 F 77 12 118/65 91 05/05/17 12:17 05/05/17 12:17 05/05/17 12:17 05/05/17 12:17 05/05/17 12:17 General appearance: Present: A&O X 3, no acute distress, underweight, answers questions appropriately - Head Head exam: Present: atraumatic, normocephalic - Eye Eye exam: Present: conjuntiva pink, sclera anicteric - Respiratory Respiratory exam: Present: CTAB. Absent: respiratory distress, wheezes - Cardiovascular Cardiovascular exam: Present: RRR, +S1, +S2. Absent: diastolic murmur, gallop, rubs, systolic murmur - GI/Abdominal GI/Abdominal exam: Present: normal bowel sounds, soft, no peritoneal signs. Absent: distended, tenderness - Extremities Exam Extremities exam: Present: warm, radial pulses palpable and symmetrical. Absent : calf tenderness, cyanotic, pedal edema - Neurological Exam Neurological exam: Present: alert, oriented X3 - Psychiatric Psychiatric exam: Present: normal affect, normal mood Internal Medicine: Result - Labs CBC & Chem 7: 05/05/17 06:25 05/05/17 06:25 Labs: Short CBC 05/05/17 Range/Units 06:25 WBC 4.7 (4.3-11.1) K/mcL Hgb 8.6 L (11.5-15.4) g/dL Hct 26.6 L (35.3-44.9) % Plt Count 158 (140-400) K/mcL Neutrophils # 3.4 (1.6-8.9) K/mcL BMP 05/05/17 06:25 Sodium 139 Potassium 4.0 Chloride 100 Carbon Dioxide 35 H BUN 18 D Creatinine 0.79 Glucose 92 Calcium 8.8 - ABG Interpretation ABG results: PT/INR, D-dimer PT 35.7 Seconds (9.4-12.1) H 05/05/17 06:25 - VTE Documentation of Mechanical Device: Venous foot pump, device Consult Discharge Plan - Plan Referrals: Mane Wright DO [Primary Care Provider] -
[2017-05-05] MEDS: Pantoprazole 40 MG VIAL IVP SCH ×2 (13:42→18:12)
[2017-05-06] MEDS: MetroNIDAZOLE 500 MG/100 ML 500 MG/100 ML BAG IVPB SCH ×3 (06:11→17:40)
[2017-05-06] MEDS: Pantoprazole 40 MG VIAL IVP SCH ×2 (06:12→17:40)
[2017-05-06 07:21] LABS: INR 2.9; Prothrombin Time 31.4 Seconds (9.4-12.1)
[2017-05-06 07:23] LABS: Basophils % 0.5 %; Eosinophils # 0.3 K/mcL (0.0-0.6); Eosinophils % 5.2 %; Hematocrit 25.9 % (35.3-44.9); Hemoglobin 8.4 g/dL (11.5-15.4); Immature Granulocytes % 0.2 % (0-4); Lymphocytes # 0.5 K/mcL (0.6-4.6); Mean Corpuscular HGB Conc 32.4 g/dL (31.6-35.5); Mean Corpuscular Hemoglobin 30.9 pg (28.0-33.3); Mean Corpuscular Volume 95.2 fL (83.0-100.0); Mean Platelet Volume 11.4 fL (9.4-12.4); Monocytes # 0.7 K/mcL (0.0-1.3); Monocytes % 11.3 %; Neutrophils # 4.3 K/mcL (1.6-8.9); Platelet Count 163 K/mcL (140-400); Red Blood Count 2.72 M/mcL (3.82-4.97); Red Cell Distribution Width 14.2 % (11.5-14.5); Segmented Neutrophils % 73.8 %
[2017-05-06 07:48] LABS: BUN/Creatinine Ratio 19 (6-26); Blood Urea Nitrogen 15 mg/dL (7-20); Carbon Dioxide 31 mEq/L (19-29); Chloride 99 mEq/L (98-109); Glucose 97 mg/dL (70-99); Magnesium 1.7 mg/dL (1.6-2.6); Osmolality,Calculated 287 (280-300); Phosphorous 2.7 mg/dL (2.3-4.7); Potassium 3.9 mEq/L (3.5-4.5); Sodium 138 mEq/L (136-145); eGFR For African Americans > 60 (> 60); eGFR For Non-African Americans > 60 (> 60)
[2017-05-06] MEDS ORDERED: *HR* Phytonadione 10 MG/ML AMPUL SQ ONE (08:05)
[2017-05-06] MEDS: Furosemide 20 MG TABLET PO SCH ×2 (09:55→17:40)
[2017-05-06] MEDS: *HR* Digoxin 0.125 MG TABLET PO SCH (09:55)
[2017-05-06] MEDS: Metoprolol XL (24 HR) Succ 50 MG TAB.ER.24H PO SCH ×2 (09:55→20:09)
[2017-05-06] MEDS: Isosorbide MONOnitrate (24 HR) 30 MG TAB.ER.24H PO SCH (09:55)
[2017-05-06 10:41] LABS: % Iron Saturation 10 % (15-50); Iron 26 mcg/dL (50-170); Transferrin 194 mg/dL (180-382)
[2017-05-06 10:59] LABS: Ferritin 194 ng/ml (5-204)
[2017-05-06 11:14] LABS: Folate 17.5 ng/mL (7.0-31.4)
--- NOTE | 2017-05-06 12:12 | Urology Progress Note ---
Date of Encounter: 05/06/17 Time of Encounter: 12:10 - Assessment and Plan (1) Ureteral mass Current Visit: Yes Status: Acute Assessment and plan: 87-year-old woman with an elevated INR, possible urothelial bleed versus ureteral mass. She is currently stable today. A urine cytology is pending. I recommend repeat imaging as an outpatient in 2-4 weeks to see if the bleeding has resolved. We can consider operative ureteroscopy at that time. There are no acute urologic issues currently. She has no hematuria. Urology will sign off at this point. We will see her back in 2 weeks in the office to arrange for follow- up imaging. Please call with questions. Progress Note Narrative: Patient sleeping this morning. No events overnight. Objective Initial Vital Signs Temp Pulse Resp BP Pulse Ox 97.5 F L 95 18 148/69 97 05/04/17 01:28 05/04/17 01:28 05/04/17 01:28 05/04/17 01:28 05/04/17 01:28 - General physical appearance Present: other (Sleeping.) - Labs 05/06/17 06:57 05/06/17 06:57 Diabetes panel 05/06/17 Range/Units 06:57 Sodium 138 (136-145) mEq/L Potassium 3.9 (3.5-4.5) mEq/L Chloride 99 (98-109) mEq/L Carbon Dioxide 31 H (19-29) mEq/L BUN 15 (7-20) mg/dL Creatinine 0.79 (0.57-1.11) mg/dL Glucose 97 (70-99) mg/dL Calcium 9.0 (8.6-10.8) mg/dL Calcium panel 05/06/17 Range/Units 06:57 Calcium 9.0 (8.6-10.8) mg/dL Phosphorus 2.7 (2.3-4.7) mg/dL Pituitary panel 05/06/17 Range/Units 06:57 Sodium 138 (136-145) mEq/L Potassium 3.9 (3.5-4.5) mEq/L Chloride 99 (98-109) mEq/L Carbon Dioxide 31 H (19-29) mEq/L BUN 15 (7-20) mg/dL Creatinine 0.79 (0.57-1.11) mg/dL Glucose 97 (70-99) mg/dL Calcium 9.0 (8.6-10.8) mg/dL Adrenal panel 05/06/17 Range/Units 06:57 Sodium 138 (136-145) mEq/L Potassium 3.9 (3.5-4.5) mEq/L Chloride 99 (98-109) mEq/L Carbon Dioxide 31 H (19-29) mEq/L BUN 15 (7-20) mg/dL Creatinine 0.79 (0.57-1.11) mg/dL Glucose 97 (70-99) mg/dL Calcium 9.0 (8.6-10.8) mg/dL - VTE Documentation of Mechanical Device: Intermittent pneumatic compression device Consult Discharge Plan - Plan Referrals: Mane Wright DO [Primary Care Provider] - Jese Severino MD [Partnered Physician] - (2 weeks.)
--- NOTE | 2017-05-06 14:31 | Internal Med Progress Note ---
Date of Encounter: 05/06/17 Time of Encounter: 14:30 - Assessment and plan (1) GI bleed Current Visit: Yes Status: Acute Assessment and plan: No acute bleeding reported since hospitalization H&H low but acceptable Surgery (Dr. Talavera) on board and consultation appreciated will continue to closely monitor and transfuse as needed IV PPI clear liquid diet Qualifiers: GI bleed type/associated pathology: unspecified gastrointestinal hemorrhage type Qualified Code(s): K92.2 - Gastrointestinal hemorrhage, unspecified (2) Anemia Current Visit: Yes Status: Acute Assessment and plan: secondary to GI bleed H&H low but acceptable will continue to monitor transfuse as needed Qualifiers: Anemia type: unspecified type Qualified Code(s): D64.9 - Anemia, unspecified (3) Supratherapeutic INR Current Visit: Yes Status: Acute Assessment and plan: secondary to Coumadin holding anticoagulation at this time s/p FFP transfusion INR improved from previous day will give one time dose of Vitamin K 10mg SQ will closely monitor INR (4) Ureteral mass Current Visit: Yes Status: Acute Assessment and plan: urology on board and consultation appreciated no surgical intervention recommended at this time outpatient follow up recommended (5) Colitis Current Visit: Yes Status: Acute Assessment and plan: CT abd pelvis consistent with Colitis continue clear liquid diet continue IV cipro and flagyl reports of resolution of abd pain at this time (6) DVT prophylaxis Current Visit: Yes Status: Acute Assessment and plan: SCD (7) CHF (congestive heart failure) Current Visit: Yes Status: Chronic Assessment and plan: no clinical signs of CHF exacerbation present continue home meds Qualifiers: Congestive heart failure type: systolic Congestive heart failure chronicity : chronic Qualified Code(s): I50.22 - Chronic systolic (congestive) heart failure (8) A-fib Current Visit: Yes Status: Chronic Assessment and plan: Rate controlled with Metoprolol, will continue holding anticoagulation given current GI bleed Qualifiers: Atrial fibrillation type: chronic Qualified Code(s): I48.2 - Chronic atrial fibrillation (9) Hypertension Current Visit: Yes Status: Chronic Assessment and plan: BP within acceptable range continue home medications Qualifiers: Hypertension type: essential hypertension Qualified Code(s): I10 - Essential (primary) hypertension (10) Goals of care, counseling/discussion Current Visit: Yes Status: Acute Assessment and plan: Palliative care consultation requested to establish goals of care and code status pt has history of CVA and dementia, mental status waxes and wanes - Subjective Interval history: Patient seen and examined at bedside. Resting in bed and denies any distress. Mental status waxes and wanes, currently oriented to self and place. Continues to have supratherapeutic INR-improved from previous day, will administer Vitamin K 10mg SQ x 1 dose No recurrent bleeding episodes reported since hospitalization No overnight events reported. - Constitutional Vitals: Temp Pulse Resp BP Pulse Ox 98.2 F 92 17 135/64 92 05/06/17 11:45 05/06/17 11:45 05/06/17 11:45 05/06/17 11:45 05/06/17 11:45 General appearance: Present: A&O X 2, no acute distress, underweight, answers questions appropriately - Head Head exam: Present: atraumatic, normocephalic - Eye Eye exam: Present: conjuntiva pink, sclera anicteric - Respiratory Respiratory exam: Present: CTAB. Absent: accessory muscle use, rales, rhonchi, wheezes - Cardiovascular Cardiovascular exam: Present: RRR, +S1, +S2. Absent: diastolic murmur, gallop, rubs, systolic murmur - GI/Abdominal GI/Abdominal exam: Present: normal bowel sounds, soft, no peritoneal signs. Absent: distended, tenderness - Extremities Exam Extremities exam: Present: warm, radial pulses palpable and symmetrical. Absent : calf tenderness, cyanotic, pedal edema - Neurological Exam Neurological exam: Present: alert - Psychiatric Psychiatric exam: Present: normal affect, normal mood Internal Medicine: Result - Labs CBC & Chem 7: 05/06/17 06:57 05/06/17 06:57 Labs: Short CBC 05/06/17 Range/Units 06:57 WBC 5.8 (4.3-11.1) K/mcL Hgb 8.4 L (11.5-15.4) g/dL Hct 25.9 L (35.3-44.9) % Plt Count 163 (140-400) K/mcL Neutrophils # 4.3 (1.6-8.9) K/mcL BMP 05/06/17 06:57 Sodium 138 Potassium 3.9 Chloride 99 Carbon Dioxide 31 H BUN 15 Creatinine 0.79 Glucose 97 Calcium 9.0 - ABG Interpretation ABG results: PT/INR, D-dimer PT 31.4 Seconds (9.4-12.1) H 05/06/17 06:57 - VTE Documentation of Mechanical Device: Intermittent pneumatic compression device Consult Discharge Plan - Plan Referrals: Jese Severino MD [Partnered Physician] - (2 weeks.) Mane Wright DO [Primary Care Provider] -
[2017-05-07] MEDS: MetroNIDAZOLE 500 MG/100 ML 500 MG/100 ML BAG IVPB SCH ×3 (01:53→17:53)
[2017-05-07 05:36] LABS: Basophils % 0.5 %; Eosinophils # 0.2 K/mcL (0.0-0.6); Eosinophils % 3.1 %; Hematocrit 25.9 % (35.3-44.9); Hemoglobin 8.5 g/dL (11.5-15.4); Immature Granulocytes % 0.2 % (0-4); Lymphocytes # 0.6 K/mcL (0.6-4.6); Lymphocytes % 9.8 %; Mean Corpuscular HGB Conc 32.8 g/dL (31.6-35.5); Mean Corpuscular Volume 94.5 fL (83.0-100.0); Mean Platelet Volume 11.2 fL (9.4-12.4); Monocytes # 0.9 K/mcL (0.0-1.3); Monocytes % 14.3 %; Neutrophils # 4.4 K/mcL (1.6-8.9); Platelet Count 179 K/mcL (140-400); Red Blood Count 2.74 M/mcL (3.82-4.97); Red Cell Distribution Width 14.1 % (11.5-14.5); Segmented Neutrophils % 72.1 %
[2017-05-07 05:44] LABS: INR 1.8; Prothrombin Time 19.9 Seconds (9.4-12.1)
[2017-05-07 05:50] LABS: BUN/Creatinine Ratio 17 (6-26); Blood Urea Nitrogen 13 mg/dL (7-20); Calcium 8.9 mg/dL (8.6-10.8); Carbon Dioxide 32 mEq/L (19-29); Chloride 97 mEq/L (98-109); Glucose 103 mg/dL (70-99); Magnesium 1.5 mg/dL (1.6-2.6); Osmolality,Calculated 284 (280-300); Phosphorous 2.4 mg/dL (2.3-4.7); Potassium 3.6 mEq/L (3.5-4.5); Sodium 137 mEq/L (136-145); eGFR For African Americans > 60 (> 60); eGFR For Non-African Americans > 60 (> 60)
[2017-05-07] MEDS: Pantoprazole 40 MG VIAL IVP SCH ×2 (07:04→16:07)
[2017-05-07] MEDS: Isosorbide MONOnitrate (24 HR) 30 MG TAB.ER.24H PO SCH (08:21)
[2017-05-07] MEDS: Furosemide 20 MG TABLET PO SCH ×2 (08:21→16:07)
[2017-05-07] MEDS: Metoprolol XL (24 HR) Succ 50 MG TAB.ER.24H PO SCH ×2 (08:21→21:17)
[2017-05-07] MEDS: *HR* Digoxin 0.125 MG TABLET PO SCH (08:21)
[2017-05-07] MEDS ORDERED: Magnesium Sulfate 2 GM in D5% in Water 100 ML IVPB ONE (08:47)
--- NOTE | 2017-05-07 13:30 | Palliative - Consult Note ---
Date of Encounter: 05/07/17 Time of Encounter: 10:45 - Assessment and Plan (1) Goals of care, counseling/discussion Current Visit: Yes Status: Acute Assessment and plan: Met with Jose, and son Grady arrived during my visit. Patient lives at home with and her provides majority of her care. They do recieve " meals on wheels", which they are not happy with and asked for another source of home delivered meals, and I did provide them with [facility] contact information. Discussed goals of care - her advanced directives and power of patent prosecution attorney are already completed and on medical record. She does have difficulty with memory loss, and poor historian, but she is able to participate in discussion. They are aware that urology plans on follow up and possible intervention as outpt, but do not plan further visits seeing her here and have signed off. Patient desires to remain full code at this time, and agrees, stating they need further information before discussing any further. Palliative will sign off. Please reconsult if needed. (2) Ureteral mass Current Visit: Yes Status: Acute Assessment and plan: To be followed up by urology as outpt with repeat imaging next 2-4 weeks. (3) GI bleed Current Visit: Yes Status: Acute Assessment and plan: Resolved. Hgb stable. Qualifiers: GI bleed type/associated pathology: unspecified gastrointestinal hemorrhage type Qualified Code(s): K92.2 - Gastrointestinal hemorrhage, unspecified (4) Supratherapeutic INR Current Visit: Yes Status: Acute Assessment and plan: Resolved. INR 1.8 today. Hospitalist following. Palliative-CN HPI - Data of Consult Requesting Physician: Estefani Chambers MD Primary Care Provider: Mane Wright DO - Consult Narrative History of present illness: Ms. Adame is a 87 year old female with a history of CVA, atrial fibrillation, dementia, who was admitted with rectal bleeding and abdominal pain that began a few days prior to admission. Patient had not had BM at home, but noticed rectal bleeding. She was found to have subtherapeutic INR. She has history of colon Caner s/p surgery performed by Dr. Chinmay Talavera in 1997. Upon imaging on admission, appeared to have a ureteral bleeding/mass that extended into right kidney. Surgery as well as urology was consulted. Treated with FFP and vitamin K, and INR now 1.8. Hemoglobin has been stable the last couple of days, and no further rectal bleeding. She lives with , Jose, at home. Son Grady Velasquez works at [employer] in the IT department. Upon my visit, pt is up in chair and pleasant. Flat affect. is at bedside. States she is feeling better and would like to go home soon. Denies pain/shortness of breath, states eating, but "they are only giving me liquids." . CC: Estefani Chambers MD Past Med Surg Social Fam HX - Past Medical History Medical history: atrial fibrillation, cancer, CHF, CVA, TIA Psychiatric history: no psych history - Past Surgical History Surgical History: colectomy - Social History Smoking Status: Former smoker Smokeless Tobacco Status: No Alcohol use: none Drug use: none - Family History Mother History Unknown: Yes Medications and Allergies Alendronate Sodium 70 mg PO QWEEK 05/04/17 [History] Digoxin [Lanoxin] 0.125 mg PO DAILY 05/04/17 [History] Furosemide [Lasix] 20 mg PO BID 05/04/17 [History] Isosorbide MONOnitrate (24 HR) [Imdur] 30 mg PO DAILY 05/04/17 [History] Lisinopril [Zestril] 10 mg PO BID 05/04/17 [History] Metoprolol XL (24 HR) Succ [Toprol XL] 50 mg PO BID 05/04/17 [History] Simvastatin [Zocor] 20 mg PO DAILY 05/04/17 [History] Warfarin [Coumadin] 3 mg PO DAILY 05/04/17 [History] 3 Allergy/AdvReac Type Severity Reaction Status Date / Time No Known Allergies Allergy Verified 05/04/17 01:28 ROS unobtainable: due to mental status Palliative Care-Exam - Constitutional Vitals: Temp Pulse Resp BP Pulse Ox 97.8 F 77 18 103/55 95 05/07/17 10:52 05/07/17 10:52 05/07/17 10:52 05/07/17 10:52 05/07/17 10:52 General appearance: Present: no acute distress - Head Head Exam: Present: normal inspection, normocephalic - Eye Eye exam: Present: normal appearance, PERRL - Respiratory Respiratory exam: Present: decreased breath sounds, CTAB - Cardiovascular Cardiovascular exam: Present: irregular rhythm, systolic murmur - GI/Abdominal Exam GI/Abdominal exam: Present: normal bowel sounds, soft - Extremities Exam Extremities exam: Present: normal capillary refill, normal inspection - Neurological Exam Neurological exam: Present: alert, oriented X3 Additional comments: Oriented to person and place, needs reoriented to time and situation - Psychiatric Psychiatric exam: Present: flat affect - Skin Skin exam: Present: dry, pallor, warm Internal Medicine - CN: Reslt - Labs CBC & Chem 7: 05/07/17 05:01 05/07/17 05:01 Labs: Short CBC 05/07/17 Range/Units 05:01 WBC 6.1 (4.3-11.1) K/mcL Hgb 8.5 L (11.5-15.4) g/dL Hct 25.9 L (35.3-44.9) % Plt Count 179 (140-400) K/mcL Neutrophils # 4.4 (1.6-8.9) K/mcL BMP 05/07/17 05:01 Sodium 137 Potassium 3.6 Chloride 97 L Carbon Dioxide 32 H BUN 13 Creatinine 0.76 Glucose 103 H Calcium 8.9 - ABG Interpretation ABG results: PT/INR, D-dimer PT 19.9 Seconds (9.4-12.1) H 05/07/17 05:01 Consult Discharge Plan - Plan Referrals: Jese Severino MD [Partnered Physician] - (2 weeks.) Mane Wright DO [Primary Care Provider] - Palliative Quality Palliative Quality: Screen for Code Status: Yes, Screen for Goals of Care: Yes, Screen for Pain: Yes, If Pain Regimen Started, Initiate Bowel Regimen: NA, Screen for Nausea/Vomitting: Yes
--- NOTE | 2017-05-07 15:50 | Internal Med Progress Note ---
Date of Encounter: 05/07/17 Time of Encounter: 15:45 - Assessment and plan (1) GI bleed Current Visit: Yes Status: Acute Assessment and plan: No acute bleeding reported since hospitalization H&H low but acceptable Surgery (Dr. Talavera) on board and consultation appreciated will continue to closely monitor and transfuse as needed IV PPI clear liquid diet Qualifiers: GI bleed type/associated pathology: unspecified gastrointestinal hemorrhage type Qualified Code(s): K92.2 - Gastrointestinal hemorrhage, unspecified (2) Anemia Current Visit: Yes Status: Acute Assessment and plan: secondary to GI bleed H&H low but acceptable will continue to monitor transfuse as needed Qualifiers: Anemia type: unspecified type Qualified Code(s): D64.9 - Anemia, unspecified (3) Supratherapeutic INR Current Visit: Yes Status: Resolved Assessment and plan: Resolved secondary to Coumadin holding anticoagulation at this time s/p FFP transfusion and Vitamin K supplementation (4) Ureteral mass Current Visit: Yes Status: Acute Assessment and plan: urology on board and consultation appreciated no surgical intervention recommended at this time outpatient follow up recommended (5) Colitis Current Visit: Yes Status: Acute Assessment and plan: CT abd pelvis consistent with Colitis continue clear liquid diet continue IV cipro and flagyl reports of resolution of abd pain at this time (6) DVT prophylaxis Current Visit: Yes Status: Acute Assessment and plan: SCD (7) CHF (congestive heart failure) Current Visit: Yes Status: Chronic Assessment and plan: no clinical signs of CHF exacerbation present continue home meds Qualifiers: Congestive heart failure type: systolic Congestive heart failure chronicity : chronic Qualified Code(s): I50.22 - Chronic systolic (congestive) heart failure (8) A-fib Current Visit: Yes Status: Chronic Assessment and plan: Rate controlled with Metoprolol, will continue holding anticoagulation given current GI bleed Qualifiers: Atrial fibrillation type: chronic Qualified Code(s): I48.2 - Chronic atrial fibrillation (9) Hypertension Current Visit: Yes Status: Chronic Assessment and plan: BP within acceptable range continue home medications Qualifiers: Hypertension type: essential hypertension Qualified Code(s): I10 - Essential (primary) hypertension (10) Goals of care, counseling/discussion Current Visit: Yes Status: Acute Assessment and plan: Palliative care consultation appreciated (11) Hypomagnesemia Current Visit: Yes Status: Acute Assessment and plan: Mg supplemented continue to monitor electrolytes and replace as needed - Subjective Interval history: Patient seen and examined with family present at bedside. Patient in no distress and denies any discomfort at this time As per family and patient, they are willing to undergo colonoscopy if it is recommended by surgery, however family and patient are not able to establish goals of care. kept asking if colonoscopy at her age was safe however continues to want aggressive management. Pt states she wants to feel better and would agree to colonoscopy if that would make her feel better. Dr. Talavera updated about the current patient and family situation/decision. Dr. Talavera will discuss this matter with the patient and family later today. will continue with clear liquid diet at this time. Will advance diet if no colonoscopy is scheduled. - Constitutional Vitals: Temp Pulse Resp BP Pulse Ox 97.8 F 77 18 103/55 95 05/07/17 10:52 05/07/17 10:52 05/07/17 10:52 05/07/17 10:52 05/07/17 10:52 General appearance: Present: A&O X 3, no acute distress, underweight, answers questions appropriately - Head Head exam: Present: atraumatic, normocephalic - Eye Eye exam: Present: conjuntiva pink, sclera anicteric - Respiratory Respiratory exam: Present: CTAB. Absent: accessory muscle use, rales, rhonchi, wheezes - Cardiovascular Cardiovascular exam: Present: RRR, +S1, +S2. Absent: diastolic murmur, gallop, rubs, systolic murmur - GI/Abdominal GI/Abdominal exam: Present: normal bowel sounds, soft, no peritoneal signs. Absent: distended, tenderness - Extremities Exam Extremities exam: Present: warm, radial pulses palpable and symmetrical. Absent : calf tenderness, cyanotic, pedal edema Additional comments: diffuse bruising on left distal arm - Neurological Exam Neurological exam: Present: alert, oriented X3 - Psychiatric Psychiatric exam: Present: normal affect, normal mood Internal Medicine: Result - Labs CBC & Chem 7: 05/07/17 05:01 05/07/17 05:01 Labs: Short CBC 05/07/17 Range/Units 05:01 WBC 6.1 (4.3-11.1) K/mcL Hgb 8.5 L (11.5-15.4) g/dL Hct 25.9 L (35.3-44.9) % Plt Count 179 (140-400) K/mcL Neutrophils # 4.4 (1.6-8.9) K/mcL BMP 05/07/17 05:01 Sodium 137 Potassium 3.6 Chloride 97 L Carbon Dioxide 32 H BUN 13 Creatinine 0.76 Glucose 103 H Calcium 8.9 - ABG Interpretation ABG results: PT/INR, D-dimer PT 19.9 Seconds (9.4-12.1) H 05/07/17 05:01 - VTE Documentation of Mechanical Device: Intermittent pneumatic compression device Consult Discharge Plan - Plan Referrals: Jese Severino MD [Partnered Physician] - (2 weeks.) Mane Wright DO [Primary Care Provider] -
--- NOTE | 2017-05-07 18:30 | General Surgery Progress Note ---
Date of Encounter: 05/07/17 Time of Encounter: 18:20 Subjective Narrative: General Surgery - The patient awake alert and oriented. Able to participate in my discussion with the patient and her . The patient and her expressed concern about the rectal bleeding and its potential etiology. There is been no recurrent rectal bleeding since the INR has been corrected to 3.9 her last. INR currently 1.8 with a PT of 19.9. is concerned as her stroke approximately 3 weeks ago was blamed by the neurologist to be due to an INR less than 2.0 Unfortunately with her renal or perinephric bleed and rectal bleeding the risk of anticoagulation is significant and has to be balanced against the risk of another stroke. Intervention has been discussed with Dr. Napoles as well as the family. If intervention is desired, colonoscopy is one of the next diagnostic procedures recommended to address any potential lower GI / colonic source for the rectal bleeding. Colonoscopy requires mechanical bowel prep which neither the patient of her desire. Alternative to colonoscopy, BaEnema can be considered. Again this was deferred by both the patient and her as any abnormal findings may indicate further evaluation with colonoscopy. The patient and her wish to defer intervention at this time. Colonoscopy will not be scheduled in the AM. Diet will returned to regular diet. Anticoagulation must be a consideration between the risk of further hemorrhage involving the right kidney, the colon and the risk of stroke due to chronic a- fib. Objective Vital Signs - Last 8 Hours Temp Pulse Resp BP Pulse Ox 05/07/17 16:00 98.4 F 74 15 124/64 100 05/07/17 10:52 97.8 F 77 18 103/55 95 Intake and Output 05/07/17 05/07/17 05/07/17 07:59 15:59 23:59 Intake Total 200 / 200 1530 / 1530 360 / 360 Output Total 200 / 200 800 / 800 0 / 0 Balance 0 / 0 730 / 730 360 / 360 Intake: IV Fluids 200 / 200 100 / 100 Cipro Premix 200 MG/100 ML 200 100 / 100 mg In 100 ml @ 100 mls/hr IVPB Q12H [facility] Rx#:[id number] Flagyl Premix 500 MG/100 ML 500 100 / 100 100 / 100 mg In 100 ml @ 100 mls/hr IVPB Q8H [facility] Rx#:[id number] Oral 0 / 0 1430 / 1430 360 / 360 Output: Urine 200 / 200 800 / 800 0 / 0 Other: Meal Lunch Dinner Stool Size Small Stool Consistency formed Stool Color Brown # Voids 1 Weight 50.1 kg Patient Weight 05/07/17 23:59 Weight 50.1 kg - Labs 05/07/17 05:01 05/07/17 05:01 Diabetes panel 05/07/17 Range/Units 05:01 Sodium 137 (136-145) mEq/L Potassium 3.6 (3.5-4.5) mEq/L Chloride 97 L (98-109) mEq/L Carbon Dioxide 32 H (19-29) mEq/L BUN 13 (7-20) mg/dL Creatinine 0.76 (0.57-1.11) mg/dL Glucose 103 H (70-99) mg/dL Calcium 8.9 (8.6-10.8) mg/dL Calcium panel 05/07/17 Range/Units 05:01 Calcium 8.9 (8.6-10.8) mg/dL Phosphorus 2.4 (2.3-4.7) mg/dL Pituitary panel 05/07/17 Range/Units 05:01 Sodium 137 (136-145) mEq/L Potassium 3.6 (3.5-4.5) mEq/L Chloride 97 L (98-109) mEq/L Carbon Dioxide 32 H (19-29) mEq/L BUN 13 (7-20) mg/dL Creatinine 0.76 (0.57-1.11) mg/dL Glucose 103 H (70-99) mg/dL Calcium 8.9 (8.6-10.8) mg/dL Adrenal panel 05/07/17 Range/Units 05:01 Sodium 137 (136-145) mEq/L Potassium 3.6 (3.5-4.5) mEq/L Chloride 97 L (98-109) mEq/L Carbon Dioxide 32 H (19-29) mEq/L BUN 13 (7-20) mg/dL Creatinine 0.76 (0.57-1.11) mg/dL Glucose 103 H (70-99) mg/dL Calcium 8.9 (8.6-10.8) mg/dL - VTE Documentation of Mechanical Device: Intermittent pneumatic compression device Consult Discharge Plan - Plan Referrals: Jese Severino MD [Partnered Physician] - (2 weeks.) Mane Wright, [Primary Care Provider] -
[2017-05-08] MEDS: MetroNIDAZOLE 500 MG/100 ML 500 MG/100 ML BAG IVPB SCH ×3 (00:39→16:36)
[2017-05-08 04:14] LABS: Basophils % 0.7 %; Eosinophils # 0.4 K/mcL (0.0-0.6); Eosinophils % 6.1 %; Hematocrit 25.3 % (35.3-44.9); Hemoglobin 8.4 g/dL (11.5-15.4); Immature Granulocytes % 0.2 % (0-4); Lymphocytes # 0.6 K/mcL (0.6-4.6); Lymphocytes % 10.6 %; Mean Corpuscular HGB Conc 33.2 g/dL (31.6-35.5); Mean Corpuscular Hemoglobin 31.1 pg (28.0-33.3); Mean Corpuscular Volume 93.7 fL (83.0-100.0); Mean Platelet Volume 10.9 fL (9.4-12.4); Monocytes # 0.9 K/mcL (0.0-1.3); Monocytes % 14.2 %; Neutrophils # 4.1 K/mcL (1.6-8.9); Platelet Count 189 K/mcL (140-400); Red Cell Distribution Width 13.9 % (11.5-14.5); Segmented Neutrophils % 68.2 %
[2017-05-08 04:26] LABS: BUN/Creatinine Ratio 12 (6-26); Blood Urea Nitrogen 10 mg/dL (7-20); Calcium 8.8 mg/dL (8.6-10.8); Carbon Dioxide 35 mEq/L (19-29); Chloride 97 mEq/L (98-109); Glucose 105 mg/dL (70-99); Magnesium 1.5 mg/dL (1.6-2.6); Osmolality,Calculated 283 (280-300); Phosphorous 2.3 mg/dL (2.3-4.7); Potassium 3.5 mEq/L (3.5-4.5); eGFR For African Americans > 60 (> 60); eGFR For Non-African Americans > 60 (> 60)
[2017-05-08 04:28] LABS: Sodium 137 mEq/L (136-145)
[2017-05-08] MEDS: Pantoprazole 40 MG VIAL IVP SCH ×2 (05:49→16:40)
[2017-05-08] MEDS ORDERED: Magnesium Sulfate 2 GM in D5% in Water 100 ML IVPB ONE (08:06)
--- NOTE | 2017-05-08 09:32 | Internal Med Progress Note ---
Date of Encounter: 05/08/17 Time of Encounter: 09:20 - Assessment and plan (1) GI bleed Current Visit: Yes Status: Acute Assessment and plan: Patient presented with rectal/lower GI bleed and noted to have supratherapeutic INR. Patient received a total of 4 units FFP and 1 unit PRBC since admission. Hemoglobin currently stable, 8.4 today. INR less than 2. GI bleed resolved. Tolerates oral diet. Surgery consult and follow-up appreciated-patient and family have been offered colonoscopy to evaluate rectal bleeding, which patient has declined as she does not want mechanical bowel prep. Recommend cautious anticoagulation at this time weighing risks versus benefits. Patient did have a previous stroke with subtherapeutic INR in the past. Qualifiers: GI bleed type/associated pathology: unspecified gastrointestinal hemorrhage type Qualified Code(s): K92.2 - Gastrointestinal hemorrhage, unspecified (2) Supratherapeutic INR Current Visit: Yes Status: Resolved Assessment and plan: INR today is 1.4. Risks and benefits of anticoagulation discussed with family, who continue to insist on the patient being restarted on Coumadin due to history of previous stroke with INR less than 2. Patient needs close monitoring of INR in anticoagulation clinic. (3) Ureteral mass Current Visit: Yes Status: Acute Assessment and plan: CT abdomen/pelvis concerning for possible heterogeneous mass in the right renal collecting system, extending throughout right ureter. Urology consult appreciated, could be urothelial hemorrhage vs malignancy. Urine cytology is negative for high-grade urothelial cancer. Recommend outpatient urology follow- up for operative ureteroscopy. (4) Colitis Current Visit: Yes Status: Acute Assessment and plan: CT abdomen/pelvis shows changes suggestive of focal colitis. Continue IV ciprofloxacin and Flagyl. (5) CHF (congestive heart failure) Current Visit: Yes Status: Chronic Assessment and plan: Not in acute exacerbation. Continue diuretics, nitrates, beta miguel and ALANA inhibitor. Qualifiers: Congestive heart failure type: systolic Congestive heart failure chronicity : chronic Qualified Code(s): I50.22 - Chronic systolic (congestive) heart failure (6) A-fib Current Visit: Yes Status: Chronic Assessment and plan: Currently rate controlled. Continue beta miguel. Restart anticoagulation with Coumadin with careful monitoring of INR. Qualifiers: Atrial fibrillation type: chronic Qualified Code(s): I48.2 - Chronic atrial fibrillation (7) Hypertension Current Visit: Yes Status: Chronic Qualifiers: Hypertension type: essential hypertension Qualified Code(s): I10 - Essential (primary) hypertension (8) Hypomagnesemia Current Visit: Yes Status: Acute Assessment and plan: Persistent. Supplement with IV medications and weight and start oral magnesium oxide. - Subjective Interval history: Feels better; has intermittent right lower abdominal pain, but no nausea, vomiting, rectal bleeding, hematemesis; tolerates solid diet. - Constitutional Vitals: Temp Pulse Resp BP Pulse Ox 98.3 F 88 16 128/70 95 05/08/17 06:38 05/08/17 06:38 05/08/17 06:38 05/08/17 06:38 05/08/17 06:38 General appearance: Present: cachectic, A&O X 3, underweight, answers questions appropriately - Respiratory Respiratory exam: Present: CTAB. Absent: accessory muscle use, rales, rhonchi, wheezes - Cardiovascular Cardiovascular exam: Present: irregular rhythm, +S1, +S2. Absent: diastolic murmur, gallop, rubs, systolic murmur - GI/Abdominal GI/Abdominal exam: Present: normal bowel sounds, soft, no peritoneal signs. Absent: distended, tenderness - Extremities Exam Extremities exam: Present: full ROM, warm, radial pulses palpable and symmetrical. Absent: calf tenderness, cyanotic, pedal edema Internal Medicine: Result - Labs CBC & Chem 7: 05/08/17 03:42 05/08/17 03:42 Labs: Short CBC 05/08/17 Range/Units 03:42 WBC 6.1 (4.3-11.1) K/mcL Hgb 8.4 L (11.5-15.4) g/dL Hct 25.3 L (35.3-44.9) % Plt Count 189 (140-400) K/mcL Neutrophils # 4.1 (1.6-8.9) K/mcL BMP 05/08/17 03:42 Sodium 137 Potassium 3.5 Chloride 97 L Carbon Dioxide 35 H BUN 10 Creatinine 0.81 Glucose 105 H Calcium 8.8 - ABG Interpretation ABG results: PT/INR, D-dimer PT 19.9 Seconds (9.4-12.1) H 05/07/17 05:01 - VTE Documentation of Mechanical Device: Intermittent pneumatic compression device Consult Discharge Plan - Plan Referrals: Jese Severino MD [Partnered Physician] - (2 weeks.) Mane Wright DO [Primary Care Provider] -
[2017-05-08] MEDS: Metoprolol XL (24 HR) Succ 50 MG TAB.ER.24H PO SCH ×2 (09:44→22:11)
[2017-05-08] MEDS: Magnesium Oxide 400 MG TABLET PO SCH ×2 (09:44→22:12)
[2017-05-08] MEDS: *HR* Digoxin 0.125 MG TABLET PO SCH (09:44)
[2017-05-08] MEDS: Furosemide 20 MG TABLET PO SCH ×2 (09:44→16:36)
[2017-05-08] MEDS: Isosorbide MONOnitrate (24 HR) 30 MG TAB.ER.24H PO SCH (09:44)
[2017-05-08 10:20] LABS: INR 1.4; Prothrombin Time 14.9 Seconds (9.4-12.1)
[2017-05-08] MEDS ORDERED: Warfarin perPT PO PRN (18:00)
[2017-05-08] MEDS ORDERED: *HR* Warfarin 3 MG TABLET PO ONE (18:00)
[2017-05-09] MEDS: MetroNIDAZOLE 500 MG/100 ML 500 MG/100 ML BAG IVPB SCH ×3 (01:05→16:16)
[2017-05-09] MEDS: Pantoprazole 40 MG VIAL IVP SCH ×2 (05:32→16:17)
[2017-05-09 05:43] LABS: INR 1.4; Prothrombin Time 14.9 Seconds (9.4-12.1)
[2017-05-09 05:44] LABS: Basophils % 0.7 %; Eosinophils # 0.3 K/mcL (0.0-0.6); Eosinophils % 5.4 %; Hematocrit 27.8 % (35.3-44.9); Immature Granulocytes % 0.2 % (0-4); Lymphocytes # 0.7 K/mcL (0.6-4.6); Lymphocytes % 12.7 %; Mean Corpuscular HGB Conc 32.4 g/dL (31.6-35.5); Mean Corpuscular Volume 95.9 fL (83.0-100.0); Mean Platelet Volume 10.5 fL (9.4-12.4); Monocytes # 0.8 K/mcL (0.0-1.3); Monocytes % 13.4 %; Neutrophils # 3.9 K/mcL (1.6-8.9); Platelet Count 221 K/mcL (140-400); Segmented Neutrophils % 67.6 %
[2017-05-09 06:00] LABS: BUN/Creatinine Ratio 18 (6-26); Blood Urea Nitrogen 15 mg/dL (7-20); Calcium 8.9 mg/dL (8.6-10.8); Carbon Dioxide 36 mEq/L (19-29); Chloride 98 mEq/L (98-109); Glucose 100 mg/dL (70-99); Magnesium 2.1 mg/dL (1.6-2.6); Osmolality,Calculated 289 (280-300); Potassium 3.6 mEq/L (3.5-4.5); Sodium 139 mEq/L (136-145); eGFR For African Americans > 60 (> 60); eGFR For Non-African Americans > 60 (> 60)
[2017-05-09] MEDS: *HR* Digoxin 0.125 MG TABLET PO SCH (09:39)
[2017-05-09] MEDS: Metoprolol XL (24 HR) Succ 50 MG TAB.ER.24H PO SCH ×2 (09:39→20:55)
[2017-05-09] MEDS: Magnesium Oxide 400 MG TABLET PO SCH ×2 (09:39→20:55)
[2017-05-09] MEDS: Isosorbide MONOnitrate (24 HR) 30 MG TAB.ER.24H PO SCH (09:39)
[2017-05-09] MEDS: Furosemide 20 MG TABLET PO SCH ×2 (09:39→16:17)
--- NOTE | 2017-05-09 11:18 | Internal Med Progress Note ---
Date of Encounter: 05/09/17 Time of Encounter: 10:30 - Assessment and plan (1) GI bleed Current Visit: Yes Status: Acute Assessment and plan: Patient presented with rectal/lower GI bleed and noted to have supratherapeutic INR. Patient received a total of 4 units FFP and 1 unit PRBC since admission. Hemoglobin currently stable, 9 today. INR less than 2. GI bleed resolved. Tolerates oral diet. Surgery consult and follow-up appreciated-patient and family have been offered colonoscopy to evaluate rectal bleeding, which patient has declined as she does not want mechanical bowel prep. Recommend cautious anticoagulation at this time weighing risks versus benefits. Patient did have a previous stroke with subtherapeutic INR in the past. Restarted Coumadin at this time. Qualifiers: GI bleed type/associated pathology: unspecified gastrointestinal hemorrhage type Qualified Code(s): K92.2 - Gastrointestinal hemorrhage, unspecified (2) Supratherapeutic INR Current Visit: Yes Status: Resolved (3) Ureteral mass Current Visit: Yes Status: Acute Assessment and plan: CT abdomen/pelvis concerning for possible heterogeneous mass in the right renal collecting system, extending throughout right ureter. Urology consult appreciated, could be urothelial hemorrhage vs malignancy. Urine cytology is negative for high-grade urothelial cancer. Recommend outpatient urology follow- up for operative ureteroscopy. (4) Colitis Current Visit: Yes Status: Acute Assessment and plan: CT abdomen/pelvis shows changes suggestive of focal colitis. Continue IV ciprofloxacin and Flagyl- day 6. (5) CHF (congestive heart failure) Current Visit: Yes Status: Chronic Assessment and plan: Not in acute exacerbation. Continue home medications. Qualifiers: Congestive heart failure type: systolic Congestive heart failure chronicity : chronic Qualified Code(s): I50.22 - Chronic systolic (congestive) heart failure (6) A-fib Current Visit: Yes Status: Chronic Assessment and plan: Currently rate controlled. Continue beta miguel. Continue Coumadin with careful monitoring of INR. Qualifiers: Atrial fibrillation type: chronic Qualified Code(s): I48.2 - Chronic atrial fibrillation (7) Hypertension Current Visit: Yes Status: Chronic Assessment and plan: BP within acceptable range continue home medications Qualifiers: Hypertension type: essential hypertension Qualified Code(s): I10 - Essential (primary) hypertension (8) Hypomagnesemia Current Visit: Yes Status: Resolved Assessment and plan: Improving with IV and oral supplements. - Subjective Interval history: Denies abdominal or chest pain. No melena, hematochezia, dyspnea. Tolerates oral diet. - Constitutional Vitals: Temp Pulse Resp BP Pulse Ox 97.8 F 100 15 100/56 98 05/09/17 10:37 05/09/17 10:37 05/09/17 10:37 05/09/17 10:37 05/09/17 10:37 General appearance: Present: cachectic, A&O X 3, underweight - Respiratory Respiratory exam: Present: CTAB. Absent: accessory muscle use, rales, rhonchi, wheezes - Cardiovascular Cardiovascular exam: Present: irregular rhythm, +S1, +S2. Absent: diastolic murmur, gallop, rubs, systolic murmur - GI/Abdominal GI/Abdominal exam: Present: normal bowel sounds, soft, no peritoneal signs. Absent: distended, tenderness Internal Medicine: Result - Labs CBC & Chem 7: 05/09/17 05:21 05/09/17 05:21 Labs: Short CBC 05/09/17 Range/Units 05:21 WBC 5.7 (4.3-11.1) K/mcL Hgb 9.0 L (11.5-15.4) g/dL Hct 27.8 L (35.3-44.9) % Plt Count 221 (140-400) K/mcL Neutrophils # 3.9 (1.6-8.9) K/mcL BMP 05/09/17 05:21 Sodium 139 Potassium 3.6 Chloride 98 Carbon Dioxide 36 H BUN 15 Creatinine 0.82 Glucose 100 H Calcium 8.9 - ABG Interpretation ABG results: PT/INR, D-dimer PT 14.9 Seconds (9.4-12.1) H 05/09/17 05:21 - VTE Documentation of Mechanical Device: Intermittent pneumatic compression device Consult Discharge Plan - Plan Referrals: Jese Severino MD [Partnered Physician] - (2 weeks.) Mane Wright DO [Primary Care Provider] -
[2017-05-09] MEDS ORDERED: *HR* Warfarin 2.5 MG TABLET PO ONE (18:00)
[2017-05-10] MEDS: MetroNIDAZOLE 500 MG/100 ML 500 MG/100 ML BAG IVPB SCH ×2 (00:29→08:47)
[2017-05-10] MEDS: Pantoprazole 40 MG VIAL IVP SCH (05:41)
[2017-05-10 06:04] LABS: Basophils % 0.8 %; Eosinophils # 0.3 K/mcL (0.0-0.6); Eosinophils % 5.2 %; Hematocrit 25.5 % (35.3-44.9); Hemoglobin 8.2 g/dL (11.5-15.4); Immature Granulocytes % 0.4 % (0-4); Lymphocytes # 0.7 K/mcL (0.6-4.6); Lymphocytes % 13.1 %; Mean Corpuscular HGB Conc 32.2 g/dL (31.6-35.5); Mean Corpuscular Hemoglobin 31.2 pg (28.0-33.3); Mean Platelet Volume 10.4 fL (9.4-12.4); Monocytes # 0.6 K/mcL (0.0-1.3); Monocytes % 11.8 %; Neutrophils # 3.5 K/mcL (1.6-8.9); Platelet Count 231 K/mcL (140-400); Red Blood Count 2.63 M/mcL (3.82-4.97); Segmented Neutrophils % 68.7 %
[2017-05-10 06:17] LABS: INR 1.7; Prothrombin Time 18.7 Seconds (9.4-12.1)
[2017-05-10 06:56] VITALS: BP 134/75
[2017-05-10] MEDS: *HR* Digoxin 0.125 MG TABLET PO SCH (08:47)
[2017-05-10] MEDS: Metoprolol XL (24 HR) Succ 50 MG TAB.ER.24H PO SCH (08:47)
[2017-05-10] MEDS: Magnesium Oxide 400 MG TABLET PO SCH (08:47)
[2017-05-10] MEDS: Isosorbide MONOnitrate (24 HR) 30 MG TAB.ER.24H PO SCH (08:48)
[2017-05-10] MEDS: Furosemide 20 MG TABLET PO SCH (08:48)
--- NOTE | 2017-05-10 10:17 | Discharge Summary ---
Date of Encounter: 05/10/17 Time of Encounter: 10:14 - Discharge Diagnosis (1) GI bleed Priority: Primary Status: Acute Qualifiers: GI bleed type/associated pathology: unspecified gastrointestinal hemorrhage type Qualified Code(s): K92.2 - Gastrointestinal hemorrhage, unspecified (2) Supratherapeutic INR Priority: Primary Status: Resolved (3) Ureteral mass Priority: Primary Status: Acute (4) Colitis Priority: Primary Status: Acute (5) CHF (congestive heart failure) Priority: Secondary Status: Chronic Qualifiers: Congestive heart failure type: systolic Congestive heart failure chronicity : chronic Qualified Code(s): I50.22 - Chronic systolic (congestive) heart failure (6) A-fib Priority: Secondary Status: Chronic Qualifiers: Atrial fibrillation type: chronic Qualified Code(s): I48.2 - Chronic atrial fibrillation (7) Hypertension Priority: Secondary Status: Chronic Qualifiers: Hypertension type: essential hypertension Qualified Code(s): I10 - Essential (primary) hypertension (8) Hypomagnesemia Priority: Primary Status: Resolved - Discharge Medications Home Medications: Alendronate Sodium 70 mg PO QWEEK 05/04/17 [History] Digoxin [Lanoxin] 0.125 mg PO DAILY 05/04/17 [History] Furosemide [Lasix] 20 mg PO BID 05/04/17 [History] Lisinopril [Zestril] 10 mg PO BID 05/04/17 [History] Metoprolol XL (24 HR) Succ [Toprol Xl] 50 mg PO BID 05/04/17 [History] Simvastatin [Zocor] 20 mg PO DAILY 05/04/17 [History] Warfarin Sodium 1.25 mg PO MOTUWETH@1800 05/09/17 [History] Warfarin Sodium 2.5 mg PO SUFRSA@1800 05/09/17 [History] Allergies/Adverse Reactions: 3 Allergy/AdvReac Type Severity Reaction Status Date / Time No Known Allergies Allergy Verified 05/04/17 01:28 - Notes to Outpatient Provider Needs close INR followup due to high risk for bleeding complications. Date of admission: 05/04/17 16:04 Primary care physician: Mane Wright DO Consults: 05/06/17 14:28 Consult to Palliative Care [CONS] Routine Comment: Consulting Provider: Palliative Care Felicia Reason for Consult: establish goals of care and code status Call Completed: Yes 05/08/17 13:37 Consult to Physical Therapy [CONS] Stat Comment: Evaluate, develop and implement POC Reason for Consult: discharge planning OT [Consult to Occupational Therapy] [CONS] Stat Comment: Evaluate, develop and implement POC Reason for Consult: discharge planning Discharging clinician: Melinda Pimentel Anticipated date of discharge: 05/10/17 - Patient Status Disposition: Home, Self-Care Condition: Fair Functional capacity at discharge: uses cane/walker Overall status at discharge: patient is progressing back to baseline - Discharge Instructions Instructions: Gastrointestinal Bleeding (GEN) Follow Up With: Shira Valverde CNP [Partnered Physician] - 05/11/17 10:00 am Jese Severino MD [Partnered Physician] - 05/25/17 9:00 am (2 weeks.) Additional Instructions: F/up with PCP on 05/11/17; - Diet and Activity Activity: as per physical therapy Diet: low fat, low cholesterol, low salt diet Hospital course: Ms. Adame is a 87 year old female with the above medical problems who was initially admitted with rectal bleed. She is on long-term anticoagulation with Coumadin for underlying atrial fibrillation and history of stroke. She was noted to have supratherapeutic INR at 7.5 at admission. Patient received a total of 4 units FFP and 1 unit PRBC during this admission and her hemoglobin is currently stable, INR is 1.7 today. Coumadin was initially held. CT abdomen/pelvis showed changes suggestive of sigmoid colitis and she was started on empiric IV antibiotics-ciprofloxacin and Flagyl. Surgery was consulted and colonoscopy was offered, which patient and family have declined as she does not want to go through a mechanical bowel prep. CT abdomen/pelvis also showed changes suggestive of renal pelvis and the ureteral mass versus urothelial bleed. Urology was consulted and recommended outpatient follow-up. Urine cytology was negative for malignancy. Patient's understands the risks and benefits of anticoagulation and would prefer for the patient to be initiated on Coumadin as she was noted to have significant stroke in the past when INR was less than 2. He is well aware of the exact dosage of Coumadin and target INR for the patient. She has a follow-up appointment with her primary care provider tomorrow, on 05/11/2017 and they are encouraged to keep this appointment. Patient is otherwise medically stable for discharge. - Time Spent with Patient Total time spent providing and/or coordinating discharge services: Greater than 30 minutes (45 min) - Constitutional Vitals: Temp Pulse Resp BP Pulse Ox 98.6 F 86 14 134/75 97 05/10/17 06:52 05/10/17 06:52 05/10/17 06:52 05/10/17 06:52 05/10/17 06:52 General appearance: Present: cachectic, A&O X 2, underweight - Respiratory Respiratory exam: Present: CTAB. Absent: accessory muscle use, rales, rhonchi, wheezes - Cardiovascular Cardiovascular exam: Present: irregular rhythm, +S1, +S2. Absent: diastolic murmur, gallop, rubs, systolic murmur - VTE Documentation of Mechanical Device: Intermittent pneumatic compression device
[2017-05-10] MEDS ORDERED: FLUARIX QUAD 2017-18 36MOS UP/PF 0.5 ML SYRINGE IM ONE (10:44)
== END 2017-05-10 11:21 | disposition home or self-care (01) | DRG 378 ==
LOC: 3ANU 01:27 → EMEROO 01:27 → 3ANU 05:22 → SUATTDRO 16:04
PROVIDERS: ADMIT Internal Medicine; ATTEND Internal Medicine